=== PATIENT | female | born 1940 | race Caucasian/White ===

== ENCOUNTER 2016-10-30 16:18 | Emergency (ER) | payer MEDICARE, OTHER ==
--- NOTE | 2016-10-30 16:51 | ED ---
General Adult HPI - General Chief complaint: Fall Stated complaint: fall Time Seen by Provider: 10/30/16 16:33 Source: patient, RN notes reviewed Mode of arrival: EMS - History of Present Illness Initial comments: Patient 76-year-old female who presents emergency room today by EMS, the chief complaint fall that occurred just prior to arrival. She does admit that she tripped over a step going from the garage to the kitchen. Patient states she fell down hitting the left knee and onto the right arm. Admit that she hit her head. Denies any loss consciousness. Admits to mild headache. Right-sided back pain and right arm pain in the biceps area. Admits to anterior left knee pain. Patient denies any other complaints or symptoms at times. She states she states still she is comfortable. She has declined any pain medicine at this time. Patient denies any recent fever, chills, shortness of breath, chest pain, abdominal pain, nausea or vomiting, numbness or tingling, dysuria or hematuria, constipation or diarrhea, headaches or visual changes, or any other complaints. - Related Data Home Medications Medication Instructions Recorded Confirmed Bisoprolol-Hctz 10-6.25 mg [Ziac 1 tab PO DAILY 11/26/15 10/30/16 10-6.25] Fenofibrate [Fenofibrate] 160 mg PO DAILY 11/26/15 10/30/16 Gluc/Robbin-MSM#1/C/Jack/Mathew/Bor 1 tab PO DAILY 10/30/16 10/30/16 [Glucosamine-Chondroitin Tablet] Multivits-Min/Iron/FA/Lutein 1 tab PO DAILY 10/30/16 10/30/16 [Centrum Silver Women Tablet] [place]-3 Fatty Acids/Fish Oil [Fish 1 cap PO DAILY 10/30/16 10/30/16 Oil 1,000 mg Softgel] Previous Rx's Medication Instructions Recorded Cyclobenzaprine [Flexeril] 10 mg PO TID #20 tab 10/30/16 Ibuprofen [Motrin] 600 mg PO Q6HR PRN #20 day 10/30/16 Allergies Allergy/AdvReac Type Severity Reaction Status Date / Time prednisone AdvReac Severe Rapid Verified 10/30/16 16:52 Heart Rate codeine AdvReac Hallucinati Verified 10/30/16 16:52 ons Review of Systems ROS Statement: Those systems with pertinent positive or pertinent negative responses have been documented in the HPI. ROS Other: All systems not noted in ROS Statement are negative. 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, murmur, edema bilateral ankles much of the time, OA in back, basal cell skin cancer removed from nose x 2, History of Any Multi-Drug Resistant Organisms: None Reported Past Surgical History: Appendectomy, Section, Cholecystectomy, Hysterectomy, Tonsillectomy Additional Past Surgical History / Comment(s): Bilateral cataract removal with lens implants, D&C's, hysteroscopy, hysterectomy with BSO, basal cell skin cancer removed from nose x 2, colonoscopy x 2, ear growth removed as infant Past Anesthesia/Blood Transfusion Reactions: No Reported Reaction Past Psychological History: No Psychological Hx Reported Additional Psychological History / Comment(s): Pt resides with her spouse of 50 yrs. She is independent. She uses no assistive device. She drives on occasion. Smoking Status: Never smoker Past Alcohol Use History: Rare Past Drug Use History: None Reported - Past Family History Father Family Medical History: Coronary Artery Disease (CAD), Dementia Additional Family Medical History / Comment(s): Father at age 65 yrs. Mother Additional Family Medical History / Comment(s): Mother had some sort of lung problem. She was a nonsmoker. She lived into her 80's. General Exam - General Exam Comments Initial Comments: General: The patient is awake and alert, in no distress, and does not appear acutely ill. Eye: Pupils are equal, round and reactive to light, extra-ocular movements are intact. No nystagmus. There is normal conjunctiva bilaterally. No signs of icterus. Ears, nose, mouth and throat: There are moist mucous membranes and no oral lesions. Neck: The neck is supple, there is no tenderness or JVD. Cardiovascular: There is a regular rate and rhythm. No murmur, rub or gallop is appreciated. Respiratory: Lungs are clear to auscultation, respirations are non-labored, breath sounds are equal. No wheezes, stridor, rales, or rhonchi. Gastrointestinal: Soft, non-distended, non-tender abdomen without masses or organomegaly noted. There is no rebound or guarding present. No CVA tenderness. Bowel sounds are unremarkable. Musculoskeletal: Normal appearance of the cervical, thoracic, lumbar spine. No step-offs first. She appeared no tenderness over the spinous processes. Patient does have some mild tenderness in the right side of the back. No bruising or swelling. Normal appearance of the left knee. Normal appearance of the right humerus. Patient does have mild tenderness recheck of the right humerus. Does have tenderness to the left anterior knee. Strength 5/5. Sensation intact. Pulses equal bilaterally 2+. Neurological: A&O x 3. CN II-XII intact, There are no obvious motor or sensory deficits. Coordination appears grossly intact. Speech is normal. Skin: Skin is warm and dry and no rashes or lesions are noted. Psychiatric: Cooperative, appropriate mood & affect, normal judgment. Course Vital Signs 10/30/16 10/30/16 16:20 17:39 Temperature 97.9 F Pulse Rate 84 77 Respiratory 20 20 Rate Blood Pressure 198/95 160/70 O2 Sat by Pulse 98 97 Oximetry Medical Decision Making - Medical Decision Making Patient's x-rays have been reviewed and are unremarkable no fracture dislocations. Patient's CT of the head and neck also reviewed. Shows spinal changes. No fracture seen in the cervical spine. Extensive pulmonary fibrosis. There is noted multilevel significant posterior spurring and disc herniation of C3-4, C4-5, and to a lesser extent C6-7, with a significant spinal stenosis is more severe at C2-3 and C3-4. Canal is narrowed to 5 mm. results discussed with her physician Dr. Oconnor also discussed with the patient. Patient denies any radicular type pain. Does admit to pain to the proximal humerus. Patient is advised follow-up family doctor over the next 2 days. Will be given a prescription for ibuprofen and Flexeril to go home with. Advised to return if any symptoms increase or worsen. Patient states understanding and is in agreement. Disposition Clinical Impression: Fall, Contusion Disposition: HOME SELF-CARE Condition: Good Instructions: Contusion in Adults (ED) Additional Instructions: Please use medication as discussed. Please follow-up with family doctor in the next 2 days of symptoms have not improved. Please return to emergency room if the symptoms increase or worsen or for any other concerns. Prescriptions: Cyclobenzaprine [Flexeril] 10 mg PO TID #20 tab Ibuprofen [Motrin] 600 mg PO Q6HR PRN #20 day PRN Reason: Pain Time of Disposition: 18:35
--- NOTE | 2016-10-30 17:27 | CT ---
EXAMINATION TYPE: CT brain audrey eduardo DATE OF EXAM: 10/30/2016 5:19 PM COMPARISON: NONE HISTORY: Fall injury today. CT DLP: 1687.1 mGycm Automated exposure control for dose reduction was used. TECHNIQUE: CT scan of the head and cervical spine are performed without contrast. FINDINGS: The ventricles and sulci appear normal for age. There is no mass effect nor midline shift . There is no sign of intracranial hemorrhage. The calvarium is intact. Cervical vertebra are in normal alignment. There is narrowing of C4-5 C6-7 disc spaces with spur form ation. There is multilevel hypertrophic facet arthropathy. Skull base is intact. There is no sign of fracture. There are extensive fibrotic changes at the lung apices. IMPRESSION: Negative CT scan of the brain. Spondylotic changes. No fracture seen in the cervical spine. Extensive pulmonary fibrosis. There is noted multilevel significant posterior spurring and disc herniation at C3-4 C4-5 and to a le sser extent C6-7 with significant spinal stenosis. Stenosis is more severe at C2-3 and C3-4. Canal is narrowed to 5 mm.
--- NOTE | 2016-10-30 18:02 | XR ---
EXAMINATION TYPE: XR knee complete LT DATE OF EXAM: 10/30/2016 5:52 PM COMPARISON: NONE HISTORY: Knee pain TECHNIQUE: 3 views FINDINGS: There is spurring of the medial femoral and tibial condyles. There is mild narrowing of med ial joint space. There is spurring on the patella. There is no sign of joint effusion. IMPRESSION: Hypertrophic osteoarthritis. No fracture.
--- NOTE | 2016-10-30 18:04 | XR ---
EXAMINATION TYPE: XR humerus RT DATE OF EXAM: 10/30/2016 5:53 PM COMPARISON: NONE HISTORY: Pain after a fall TECHNIQUE: 2 views FINDINGS: I see no fracture nor dislocation. Shoulder joint and elbow joint appear intact. IMPRESSION: Negative right humerus exam.
--- NOTE | 2016-10-30 18:06 | XR ---
EXAMINATION TYPE: XR chest 2V DATE OF EXAM: 10/30/2016 5:53 PM COMPARISON: 11/27/2015 HISTORY: Chest pain TECHNIQUE: Frontal and lateral views of the chest are obtained. FINDINGS: There is coarsening of interstitial pulmonary markings. There is no definite heart failure . Costophrenic angles are clear. There is spurring in the thoracic spine. Trachea is midline. There a re no hilar masses. IMPRESSION: Moderate pulmonary fibrotic changes. No acute lung disease. No change compared to old ex am. No pneumothorax.
[2016-10-30] MEDS ORDERED: CYCLOBENZAPRINE 10MG STARTER 3 TAB BTL PO STA (18:25)
[2016-10-30] MEDS ORDERED: IBUPROFEN 600 MG STARTER PACK 4 TAB BTL PO STA (18:25)
[2016-10-30 19:06] VITALS: BP 182/75; PULSE 74; RESP 18; TEMP 97.8
== END 2016-10-30 19:05 | disposition home or self-care (01) ==
LOC: EC 16:18
DX: T14.8 Other injury of unspecified body region (principal); W10.8XXA Fall (on) (from) other stairs and steps, initial encounter; Y92.015 Private garage of single-family (private) house as the place of occurrence of the external cause; M25.562 Pain in left knee; M79.601 Pain in right arm; R51 Headache; Z88.5 Allergy status to narcotic agent; Z88.8 Allergy status to other drugs, medicaments and biological substances; Z79.899 Other long term (current) drug therapy; I10 Essential (primary) hypertension; E78.5 Hyperlipidemia, unspecified; M47.9 Spondylosis, unspecified; J84.10 Pulmonary fibrosis, unspecified; M50.221 Other cervical disc displacement at C4-C5 level; M50.223 Other cervical disc displacement at C6-C7 level; M17.12 Unilateral primary osteoarthritis, left knee
CPT/HCPCS: 70450; 71020; 72125; 99284

== ENCOUNTER → 2017-04-05 | Outpatient (CLI) | payer MEDICARE, OTHER ==
[2017-04-05 11:57] LABS: ALT 35 U/L (9-52); AST 28 U/L (14-36); Alkaline Phosphatase 64 U/L (38-126); Anion Gap 10 mmol/L; Blood Urea Nitrogen 21 mg/dL (7-17); Calcium 9.6 mg/dL (8.4-10.2); Carbon Dioxide 24 mmol/L (22-30); Chloride 108 mmol/L (98-107); Cholesterol 174 mg/dL (<200); Glucose 115 mg/dL (74-99); HDL Cholesterol 38 mg/dL (40-60); Non-African American GFR(MDRD) >60 (>60 ml/min/1.73 sqM); Potassium 4.5 mmol/L (3.5-5.1); Sodium 142 mmol/L (137-145); Total Bilirubin 0.6 mg/dL (0.2-1.3); Total Protein 6.9 g/dL (6.3-8.2); Triglycerides 186 mg/dL (<150)
[2017-04-05 12:01] LABS: Basophils # (A) 0.1 k/uL (0-0.2); Basophils % (A) 1 %; CH 31.9; CHCM 32.5; Eosinophils # (A) 0.2 k/uL (0-0.7); Eosinophils % (A) 2 %; HCT 45.2 % (34.0-46.0); HDW 2.12; HGB 15.1 gm/dL (11.4-16.0); Luc # (Auto) 0.31; Luc % (Auto) 4; Lymphocytes # (A) 3.4 k/uL (1.0-4.8); Lymphocytes % (A) 38 %; MCHC 33.5 g/dL (31.0-37.0); MCV 98.5 fL (80.0-100.0); Mean Platelet Volume 6.9; Monocytes # (A) 0.4 k/uL (0-1.0); Monocytes % (A) 5 %; Neutrophils # (A) 4.4 k/uL (1.3-7.7); Neutrophils % (A) 50 %; RBC 4.58 m/uL (3.80-5.40); WBC 8.9 k/uL (3.8-10.6); WBC (Perox) 9.31
== END ==
LOC: LABWHC1 11:19
PROVIDERS: ATTEND Family Medicine
DX: R42 Dizziness and giddiness (principal)
CPT/HCPCS: 36415; 80053; 80061; 84439; 84443; 85025

== ENCOUNTER → 2017-06-13 | Outpatient (CLI) | payer MEDICARE, OTHER ==
--- NOTE | 2017-06-13 18:57 | XR ---
EXAMINATION TYPE: XR lumbosacral spine min 4V DATE OF EXAM: 06/13/2017 COMPARISON: NONE HISTORY: Back pain TECHNIQUE: 5 views FINDINGS: The vertebra have fairly normal alignment. There is a few millimeter anterior subluxation o f L4 in relation L5. There is mild narrowing of lumbar disc spaces. There is no compression fracture. I see no focal bone destruction. Sacroiliac joints are intact. Posterior elements are intact. IMPRESSION: Mild multilevel spondylosis. No fracture seen.
== END | disposition home or self-care (01) ==
LOC: RADXRMAIN 17:37
PROVIDERS: ATTEND Family Medicine
DX: M47.27 Other spondylosis with radiculopathy, lumbosacral region (principal)
CPT/HCPCS: 72110

== ENCOUNTER → 2017-08-30 | Outpatient (CLI) | payer MEDICARE, OTHER ==
--- NOTE | 2017-08-31 07:10 | XR ---
EXAMINATION TYPE: XR shoulder complete RT DATE OF EXAM: 08/30/2017 COMPARISON: NONE HISTORY: Pain TECHNIQUE: Three views are submitted. FINDINGS: The osseous structures are intact. There is no acute fracture or dislocation. Arthropathy of the AC joint. Chronic interstitial lung changes noted. Diffuse mild osteopenia. IMPRESSION: 1. AC joint arthropathy
--- NOTE | 2017-08-31 07:15 | XR ---
EXAMINATION TYPE: XR knee complete RT DATE OF EXAM: 08/30/2017 COMPARISON: NONE HISTORY: TECHNIQUE: Four views are submitted. FINDINGS: There is narrowing of the joint spaces with no erosive change. Mild hypertrophic changes are seen. Os seous structures intact. IMPRESSION: 1. Moderate osteoarthritis.
== END | disposition home or self-care (01) ==
LOC: RADXRMAIN 16:05
PROVIDERS: ATTEND Family Medicine
DX: M17.11 Unilateral primary osteoarthritis, right knee (principal); M12.811 Other specific arthropathies, not elsewhere classified, right shoulder

== ENCOUNTER → 2017-09-28 | Outpatient (CLI) | payer MEDICARE, OTHER ==
--- NOTE | 2017-09-28 16:16 | MR ---
EXAMINATION TYPE: MR shoulder RT wo con DATE OF EXAM: 09/28/2017 COMPARISON: NONE HISTORY: Right shoulder pain TECHNIQUE: Multiplanar, multisequence imaging of the right shoulder is performed without contrast. FINDINGS: Rotator Cuff: Supraspinatus tendon is torn. Retractor with loss of the acromiohumeral space. The dist al tendon most likely is at the level of the glenoid labrum. There is a small amount of joint effusio n present. Glenoid labrum appears small. Acromioclavicular Joint: Slightly hypertrophic compatible with degenerative change. This could contri bute to impingement syndrome. Glenohumeral Joint: There is loss of the joint space. The humeral head is elevated in relation to the glenoid. Labrum: The labrum appears small and limited given limitation of non-arthrogram study. Biceps Tendon: The long head of biceps is in normal location within bicipital groove. Small amount of fluid is present, consider tendinosis Bone marrow signal: No focal abnormal marrow signal is appreciated. Other: There is some fatty infiltration of the supraspinatus muscle centrally. Milder changes may be present within the infraspinatus muscle. Partial tear of the infraspinatus tendon is suspected. IMPRESSION: 1. Rotator cuff tear with the tear of the supraspinatus tendon with retraction to at least the level of the glenoid. Partial infraspinatus tendon tear is also present. 2. Small joint effusion. 3. Degenerative changes glenohumeral joint space
== END | disposition home or self-care (01) ==
LOC: RADMRIMAIN 11:47
PROVIDERS: ATTEND Family Medicine
DX: S46.011A Strain of muscle(s) and tendon(s) of the rotator cuff of right shoulder, initial encounter (principal)

== ENCOUNTER 2018-08-14 17:38 | Emergency (ER) | payer MEDICARE, OTHER ==
[2018-08-14] MEDS ORDERED: SODIUM CHLORIDE 0.9% 1,000 ML IV STA ×2 (17:56)
[2018-08-14] MEDS ORDERED: ONDANSETRON 4 MG/2 ML VIAL IVP STA (17:56)
[2018-08-14] MEDS ORDERED: MORPHINE SULFATE 4 MG/ML SYRINGE IV STA (17:56)
--- NOTE | 2018-08-14 18:00 | ED ---
Abdominal Pain HPI - General Chief Complaint: Abdominal Pain Stated Complaint: ABDOMINAL PAIN, NAUSEA Time Seen by Provider: 08/14/18 17:44 Source: patient, RN notes reviewed, old records reviewed Mode of arrival: ambulatory Limitations: no limitations - History of Present Illness Initial Comments: Patient is a 77-year-old female who presents emergency department today with chief complaint of right-sided abdominal pain radiating towards her back. She reports polyuria. Patient reports she is newly diabetic but does not take her metformin due to hearing "horror stories whether patient's". Patient states that she has had episodes of dry heaving and complains of diarrhea. She denies any bloody emesis or stools. Patient relates that she just feels very ill and weak. She states that she took 8 hours to gather the strength to come to the emergency department. Patient is here with her . Past medical history includes hypertension, hyperlipidemia and newly diagnosed diabetes. She has had cholecystectomy, appendectomy, total hysterectomy. Patient denies any recent fever, chills, shortness of breath, chest pain, back pain, abdominal pain , nausea vomiting, numbness or tingling, dysuria or hematuria, constipation or diarrhea, headaches or visual changes, or any other current symptoms - Related Data Home Medications Medication Instructions Recorded Confirmed Bisoprolol-Hctz 10-6.25 mg [Ziac 1 tab PO DAILY 11/26/15 10/30/16 10-6.25] Fenofibrate 160 mg PO DAILY 11/26/15 10/30/16 Glucosam/Robbin-Msm1/C/Jack/Bosw 1 tab PO DAILY 10/30/16 10/30/16 [Glucosamine-Chondroitin Tablet] Multivit-Min/Iron/Folic/Lutein 1 tab PO DAILY 10/30/16 10/30/16 [Centrum Silver Women Tablet] [place]-3 Fatty Acids/Fish Oil [Fish 1 cap PO DAILY 10/30/16 10/30/16 Oil 1,000 mg Softgel] Previous Rx's Medication Instructions Recorded Cyclobenzaprine [Flexeril] 10 mg PO TID #20 tab 10/30/16 Ibuprofen [Motrin] 600 mg PO Q6HR PRN #20 day 10/30/16 Dicyclomine [Bentyl] 10 mg PO TID #10 capsule 08/14/18 Ondansetron Odt [Zofran Odt] 4 mg PO Q8HR PRN #12 tab 08/14/18 Allergies Allergy/AdvReac Type Severity Reaction Status Date / Time prednisone AdvReac Severe Rapid Verified 08/14/18 17:42 Heart Rate codeine AdvReac Hallucinati Verified 08/14/18 17:42 ons Review of Systems ROS Statement: Those systems with pertinent positive or pertinent negative responses have been documented in the HPI. ROS Other: All systems not noted in ROS Statement are negative. 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, murmur, edema bilateral ankles much of the time, OA in back, basal cell skin cancer removed from nose x 2, History of Any Multi-Drug Resistant Organisms: None Reported Past Surgical History: Appendectomy, Section, Cholecystectomy, Hysterectomy, Tonsillectomy Additional Past Surgical History / Comment(s): Bilateral cataract removal with lens implants, D&C's, hysteroscopy, hysterectomy with BSO, basal cell skin cancer removed from nose x 2, colonoscopy x 2, ear growth removed as infant Past Anesthesia/Blood Transfusion Reactions: No Reported Reaction Past Psychological History: No Psychological Hx Reported Smoking Status: Never smoker Past Alcohol Use History: Rare Past Drug Use History: None Reported - Past Family History Father Family Medical History: Coronary Artery Disease (CAD), Dementia Additional Family Medical History / Comment(s): Father at age 65 yrs. Mother Additional Family Medical History / Comment(s): Mother had some sort of lung problem. She was a nonsmoker. She lived into her 80's. General Exam - General Exam Comments Initial Comments: 77-year-old female. Alert and oriented. No acute distress. Limitations: no limitations General appearance: alert, in no apparent distress Head exam: Present: atraumatic, normocephalic, normal inspection Eye exam: Present: normal appearance ENT exam: Present: normal exam, mucous membranes moist Neck exam: Present: normal inspection. Absent: tenderness, meningismus, lymphadenopathy Respiratory exam: Present: normal lung sounds bilaterally. Absent: respiratory distress, wheezes, rales, rhonchi, stridor Cardiovascular Exam: Present: regular rate, normal rhythm, normal heart sounds. Absent: systolic murmur, diastolic murmur, rubs, gallop, clicks GI/Abdominal exam: Present: soft, tenderness (minimal RLQ tenderness) Extremities exam: Present: normal inspection, full ROM, normal capillary refill. Absent: tenderness, pedal edema, joint swelling, calf tenderness Back exam: Present: normal inspection Neurological exam: Present: alert, oriented X3, CN II-XII intact Psychiatric exam: Present: normal affect, normal mood Skin exam: Present: warm, dry, intact, normal color. Absent: rash Course Vital Signs 08/14/18 17:41 Temperature 98.6 F Pulse Rate 72 Respiratory 20 Rate Blood Pressure 187/72 O2 Sat by Pulse 98 Oximetry Medical Decision Making - Medical Decision Making Patient is a 77-year-old female presents emergency room today with chief complaint of nausea, vomiting episodes of diarrhea for the past 4 days. She reports she's been feeling generally ill. Patient was given IV fluids labwork obtained. Patient's labwork was reviewed to the relatively unremarkable. Normal white blood cell count. Liver and kidney function were normal. Patient did have a CT of her abdomen and pelvis which did show some slight inflammation around the pancreas and to correlate with pancreatic enzymes. These were reviewed and normal as well. Urinalysis is negative for infection. At this time patient's feeling much better. I discussed the possibility of viral gastroenteritis. Discussed that she needs to take nausea medication I will prescribe for Bentyl for abdominal spasming and cramping. Discussed she should follow-up with her PCP in the next 1-2 days. Patient agrees to treatment plan will comply. Return parameters were discussed. - Lab Data Result diagrams: 08/14/18 18:16 08/14/18 18:16 Lab Results 08/14/18 08/14/18 08/14/18 Range/Units 18:16 18:16 18:16 WBC 9.9 (3.8-10.6) k/uL RBC 4.74 (3.80-5.40) m/uL Hgb 15.2 (11.4-16.0) gm/dL Hct 47.8 H (34.0-46.0) % MCV 101.0 H (80.0-100.0) fL MCH 32.1 (25.0-35.0) pg MCHC 31.8 (31.0-37.0) g/dL RDW 12.8 (11.5-15.5) % Plt Count 316 (150-450) k/uL Neutrophils % 62 % Lymphocytes % 29 % Monocytes % 5 % Eosinophils % 2 % Basophils % 1 % Neutrophils # 6.1 (1.3-7.7) k/uL Lymphocytes # 2.9 (1.0-4.8) k/uL Monocytes # 0.5 (0-1.0) k/uL Eosinophils # 0.2 (0-0.7) k/uL Basophils # 0.1 (0-0.2) k/uL PT (9.0-12.0) sec INR (<1.2) APTT (22.0-30.0) sec Sodium 139 (137-145) mmol/L Potassium 4.4 (3.5-5.1) mmol/L Chloride 110 H (98-107) mmol/L Carbon Dioxide 21 L (22-30) mmol/L Anion Gap 8 mmol/L BUN 14 (7-17) mg/dL Creatinine 0.57 (0.52-1.04) mg/dL Est GFR (CKD-EPI)AfAm >90 (>60 ml/min/1.73 sqM) Est GFR (CKD-EPI)NonAf >90 (>60 ml/min/1.73 sqM) Glucose 122 H (74-99) mg/dL Plasma Lactic Acid Juancho 1.2 (0.7-2.0) mmol/L Calcium 9.7 (8.4-10.2) mg/dL Total Bilirubin 0.8 (0.2-1.3) mg/dL AST 39 H (14-36) U/L ALT 23 (9-52) U/L Alkaline Phosphatase 44 (38-126) U/L Total Protein 7.3 (6.3-8.2) g/dL Albumin 3.9 (3.5-5.0) g/dL Amylase 36 (30-110) U/L Lipase 31 (23-300) U/L Urine Color Urine Appearance (Clear) Urine pH (5.0-8.0) Ur Specific [place] (1.001-1.035) Urine Protein (Negative) Urine Glucose (UA) (Negative) Urine Ketones (Negative) Urine Blood (Negative) Urine Nitrite (Negative) Urine Bilirubin (Negative) Urine Urobilinogen (<2.0) mg/dL Ur Leukocyte Esterase (Negative) Acetone, Qual Negative (Negative) 08/14/18 08/14/18 Range/Units 18:16 19:47 WBC (3.8-10.6) k/uL RBC (3.80-5.40) m/uL Hgb (11.4-16.0) gm/dL Hct (34.0-46.0) % MCV (80.0-100.0) fL MCH (25.0-35.0) pg MCHC (31.0-37.0) g/dL RDW (11.5-15.5) % Plt Count (150-450) k/uL Neutrophils % % Lymphocytes % % Monocytes % % Eosinophils % % Basophils % % Neutrophils # (1.3-7.7) k/uL Lymphocytes # (1.0-4.8) k/uL Monocytes # (0-1.0) k/uL Eosinophils # (0-0.7) k/uL Basophils # (0-0.2) k/uL PT 10.2 (9.0-12.0) sec INR 1.0 (<1.2) APTT 22.4 (22.0-30.0) sec Sodium (137-145) mmol/L Potassium (3.5-5.1) mmol/L Chloride (98-107) mmol/L Carbon Dioxide (22-30) mmol/L Anion Gap mmol/L BUN (7-17) mg/dL Creatinine (0.52-1.04) mg/dL Est GFR (CKD-EPI)AfAm (>60 ml/min/1.73 sqM) Est GFR (CKD-EPI)NonAf (>60 ml/min/1.73 sqM) Glucose (74-99) mg/dL Plasma Lactic Acid Juancho (0.7-2.0) mmol/L Calcium (8.4-10.2) mg/dL Total Bilirubin (0.2-1.3) mg/dL AST (14-36) U/L ALT (9-52) U/L Alkaline Phosphatase (38-126) U/L Total Protein (6.3-8.2) g/dL Albumin (3.5-5.0) g/dL Amylase (30-110) U/L Lipase (23-300) U/L Urine Color Yellow Urine Appearance Clear (Clear) Urine pH 6.5 (5.0-8.0) Ur Specific [place] 1.050 H (1.001-1.035) Urine Protein Negative (Negative) Urine Glucose (UA) Negative (Negative) Urine Ketones Negative (Negative) Urine Blood Negative (Negative) Urine Nitrite Negative (Negative) Urine Bilirubin Negative (Negative) Urine Urobilinogen 2.0 (<2.0) mg/dL Ur Leukocyte Esterase Negative (Negative) Acetone, Qual (Negative) - Radiology Data Radiology results: report reviewed CT shows subsegmental atelectasis in the lung bases. There is possible edema the region of the pancreatic head related to mild focal pancreatitis. No discrete masses noted. Mild sigmoid diverticulosis without diverticulitis. Disposition Clinical Impression: Gastroenteritis Disposition: HOME SELF-CARE Condition: Good Instructions: Gastroenteritis (ED) Additional Instructions: Patient advised to rest, small sips of fluid for the next 24 hours. [place] diet. Follow-up with primary care provider tomorrow. Return to the emergency department if any alarming signs or symptoms occur. Prescriptions: Dicyclomine [Bentyl] 10 mg PO TID #10 capsule Ondansetron Odt [Zofran Odt] 4 mg PO Q8HR PRN #12 tab PRN Reason: Nausea Is patient prescribed a controlled substance at d/c from ED?: No Referrals: Manuel Bowles MD [Primary Care Provider] - 1-2 days Time of Disposition: 20:24
[2018-08-14 18:30] LABS: Basophils # (A) 0.1 k/uL (0-0.2); Basophils % (A) 1 %; Eosinophils # (A) 0.2 k/uL (0-0.7); Eosinophils % (A) 2 %; HCT 47.8 % (34.0-46.0); HGB 15.2 gm/dL (11.4-16.0); Lymphocytes # (A) 2.9 k/uL (1.0-4.8); Lymphocytes % (A) 29 %; MCH 32.1 pg (25.0-35.0); MCHC 31.8 g/dL (31.0-37.0); Mean Platelet Volume 7.2; Monocytes # (A) 0.5 k/uL (0-1.0); Monocytes % (A) 5 %; Neutrophils # (A) 6.1 k/uL (1.3-7.7); Neutrophils % (A) 62 %; Platelet Count 316 k/uL (150-450); RBC 4.74 m/uL (3.80-5.40); RDW 12.8 % (11.5-15.5); WBC 9.9 k/uL (3.8-10.6)
[2018-08-14 18:39] LABS: Partial Thromboplastin Time 22.4 sec (22.0-30.0); Prothrombin Time 10.2 sec (9.0-12.0)
[2018-08-14 18:41] LABS: ALT 23 U/L (9-52); AST 39 U/L (14-36); Albumin 3.9 g/dL (3.5-5.0); Alkaline Phosphatase 44 U/L (38-126); Amylase 36 U/L (30-110); Anion Gap 8 mmol/L; Blood Urea Nitrogen 14 mg/dL (7-17); Calcium 9.7 mg/dL (8.4-10.2); Carbon Dioxide 21 mmol/L (22-30); Chloride 110 mmol/L (98-107); Glucose 122 mg/dL (74-99); Lipase 31 U/L (23-300); Potassium 4.4 mmol/L (3.5-5.1); Sodium 139 mmol/L (137-145); Total Bilirubin 0.8 mg/dL (0.2-1.3); Total Protein 7.3 g/dL (6.3-8.2)
--- NOTE | 2018-08-14 19:43 | CT ---
EXAMINATION TYPE: CT abdomen pelvis w con DATE OF EXAM: 08/14/2018 COMPARISON: None HISTORY: Nausea and right lower quadrant pain. CT DLP: 968.7 mGycm Automated exposure control for dose reduction was used. TECHNIQUE: Helical acquisition of images was performed from the lung bases through the pelvis. CONTRAST: Performed without Oral Contrast and with IV Contrast, patient injected with 100 mL of Isovue 300. FINDINGS: There is mild subsegmental atelectasis at the lung bases. There is no pleural effusion. There is no p ericardial effusion. Heart is enlarged. The stomach appears fairly normal. There are clips from ananda cystectomy. Spleen appears normal. There is no pancreatic mass. Liver shows no focal defect. There is slight prominence of the pancreatic head without a discrete mass. This could relate to minimal infla mmatory process. There is no adrenal mass. Kidneys have normal size. There is bilateral renal cortical cysts. The larg est is on the left side and measures 3 cm. There is no retroperitoneal adenopathy. There is no hydron ephrosis. There are a few sigmoid diverticula. There is no sign of diverticulitis. There are spondylo tic changes in the lumbar spine. I see no bony destructive process. Bladder distends smoothly. There is no inguinal hernia. There is no mesenteric edema or adenopathy. IMPRESSION: SUBSEGMENTAL ATELECTASIS AT THE LUNG BASES. There is possible edema at the region of pancreatic head that could relate to mild focal pancreatitis . No discrete mass seen. Minimal sigmoid diverticulosis without diverticulitis.
[2018-08-14 20:08] LABS: Appearance,Urine Clear (Clear); Bilirubin,Urine Negative (Negative); Blood,Urine Negative (Negative); Color,Urine Yellow; Glucose,Urine (UA) Negative (Negative); Ketones,Urine Negative (Negative); Leukocyte Esterase,Urine Negative (Negative); Nitrite,Urine Negative (Negative); PH, Urine 6.5 (5.0-8.0); Protein,Urine Negative (Negative)
[2018-08-14 20:26] VITALS: BP 167/78; PULSE 64; RESP 18; TEMP 98.4
== END 2018-08-14 20:41 | disposition home or self-care (01) ==
LOC: EC 17:38
DX: K52.9 Noninfective gastroenteritis and colitis, unspecified (principal); I11.0 Hypertensive heart disease with heart failure; I50.9 Heart failure, unspecified; E78.5 Hyperlipidemia, unspecified; M19.90 Unspecified osteoarthritis, unspecified site; Z85.828 Personal history of other malignant neoplasm of skin; Z90.49 Acquired absence of other specified parts of digestive tract; Z90.710 Acquired absence of both cervix and uterus; Z98.890 Other specified postprocedural states; Z79.899 Other long term (current) drug therapy; Z88.5 Allergy status to narcotic agent; Z88.8 Allergy status to other drugs, medicaments and biological substances
CPT/HCPCS: 36415; 74177; 80053; 81003; 82009; 82150; 83605; 83690; 85025; 85610; 85730; 87040; 96361; 96374; 96375; 99284

== ENCOUNTER → 2018-08-16 | Outpatient (CLI) | payer MEDICARE, OTHER ==
[2018-08-16 11:50] LABS: Basophils # (A) 0.1 k/uL (0-0.2); Basophils % (A) 1 %; Eosinophils # (A) 0.2 k/uL (0-0.7); Eosinophils % (A) 2 %; HCT 48.2 % (34.0-46.0); HGB 15.2 gm/dL (11.4-16.0); Lymphocytes # (A) 3.4 k/uL (1.0-4.8); Lymphocytes % (A) 33 %; MCH 31.7 pg (25.0-35.0); MCHC 31.6 g/dL (31.0-37.0); MCV 100.4 fL (80.0-100.0); Mean Platelet Volume 7.7; Monocytes # (A) 0.5 k/uL (0-1.0); Monocytes % (A) 5 %; Neutrophils # (A) 5.8 k/uL (1.3-7.7); Neutrophils % (A) 56 %; Platelet Count 326 k/uL (150-450); RDW 12.8 % (11.5-15.5); WBC 10.3 k/uL (3.8-10.6)
[2018-08-16 11:56] LABS: ALT 27 U/L (9-52); AST 49 U/L (14-36); Albumin 4.1 g/dL (3.5-5.0); Alkaline Phosphatase 45 U/L (38-126); Amylase 43 U/L (30-110); Bilirubin, Delta 0.6 mg/dL (0.0-0.2); Bilirubin,Unconjugated 0.4 mg/dL (0.0-1.1); Blood Urea Nitrogen 19 mg/dL (7-17); Lipase 33 U/L (23-300); Total Protein 7.7 g/dL (6.3-8.2)
--- NOTE | 2018-08-16 13:43 | CT ---
EXAMINATION TYPE: CT abdomen pelvis w con DATE OF EXAM: 08/16/2018 HISTORY: Nausea and Abdominal pain CT DLP: 1543mGycm Automated Exposure Control for Dose Reduction was Utilized. CONTRAST: CT scan of the abdomen and pelvis is performed with IV Contrast, patient injected with 100 ml mL of I sovue 300. COMPARISON: 08/14/2018. FINDINGS: LUNG BASES: Early fibrotic changes are seen of the lung bases with pleural parenchymal scarring and s ubpleural reticulation.. LIVER/GB: Hepatic parenchyma is diffusely hypoattenuated in comparison to that of the spleen, most co mmonly seen in hepatic steatosis. This finding limits evaluation for hepatic masses. No gross evidenc e of hepatic mass is seen. No intrahepatic biliary ductal dilatation. Gallbladder surgically absent. PANCREAS: Again there is expansion of the pancreatic head without focal fat stranding. Adjacent duod enal diverticulum is noted. SPLEEN: No significant abnormality is seen. ADRENALS: No significant abnormality is seen. KIDNEYS: There are again bilateral renal cysts, the largest seen on the left measuring up to 2.8 cm. No hydronephrosis bilaterally. Left extrarenal pelvis is noted. BOWEL: Rectum is collapsed limiting evaluation for bowel wall thickening. No proximal dilated large o r small bowel. Again there is minimal sigmoid diverticulosis without pericolonic fat stranding. UTERUS/ADNEXA: Uterus appears surgically absent or significantly atrophic. LYMPH NODES: No greater than 1cm abdominal or pelvic lymph nodes are appreciated. OSSEOUS STRUCTURES: No multilevel degenerative change of the spine is seen. OTHER: Small right inguinal hernia is seen containing small amount of probable complex fluid. Smaller left inguinal hernia is noted. Surgical clips are noted along the right anterior abdominal wall. IMPRESSION: 1. Bilateral small inguinal hernias, right greater than left containing indeterminant hypodensity, po ssibly thickened fascial carrera. 2. Similar expansion of the pancreatic head that should be correlated with serum amylase and lipase t o evaluate for groove pancreatitis.
== END | disposition home or self-care (01) ==
LOC: RADCTMAIN 11:03
PROVIDERS: ATTEND Family Medicine
DX: K40.20 Bilateral inguinal hernia, without obstruction or gangrene, not specified as recurrent (principal); R11.0 Nausea; Z88.5 Allergy status to narcotic agent
CPT/HCPCS: 80076; 82150; 82565; 83690; 84520; 85025; 74177; 36415; Q9967

== ENCOUNTER 2018-08-17 04:40 | Observation (INO) | payer MEDICARE, OTHER ==
--- NOTE | 2018-08-17 06:56 | ED ---
Abdominal Pain HPI - General Chief Complaint: Abdominal Pain Stated Complaint: Abdominal/Back Pain Time Seen by Provider: 08/17/18 05:02 Source: patient Mode of arrival: wheelchair Limitations: no limitations - History of Present Illness Initial Comments: This patient is 77-year-old woman who has been having days of abdominal pain. She indicates the right lower quadrant. She states that it is aching, tonight it became severe but has improved a little bit since it was at its worst. She is currently declining analgesic medicine area the patient states that she had seen her physician, and had a computed tomography scan done yesterday that reportedly showed a hernia. The patient also has had some nausea but no khadar vomiting. MD Complaint: abdominal pain -: days(s) Location: RLQ Radiation: none Migration to: no migration Severity: severe Quality: aching Consistency: constant Improves With: nothing Worsens With: nothing - Related Data Home Medications Medication Instructions Recorded Confirmed Bisoprolol-Hctz 10-6.25 mg [Ziac 1 tab PO DAILY 11/26/15 08/17/18 10-6.25] Fenofibrate 160 mg PO DAILY 11/26/15 08/17/18 Glucosam/Robbin-Msm1/C/Jack/Bosw 1 tab PO DAILY 10/30/16 08/17/18 [Glucosamine-Chondroitin Tablet] Multivit-Min/Iron/Folic/Lutein 1 tab PO DAILY 10/30/16 08/17/18 [Centrum Silver Women Tablet] [place]-3 Fatty Acids/Fish Oil [Fish 1 cap PO DAILY 10/30/16 08/17/18 Oil 1,000 mg Softgel] Previous Rx's Medication Instructions Recorded Cyclobenzaprine [Flexeril] 10 mg PO TID #20 tab 10/30/16 Ibuprofen [Motrin] 600 mg PO Q6HR PRN #20 day 10/30/16 Dicyclomine [Bentyl] 10 mg PO TID #10 capsule 08/14/18 Ondansetron Odt [Zofran Odt] 4 mg PO Q8HR PRN #12 tab 08/14/18 Allergies Allergy/AdvReac Type Severity Reaction Status Date / Time prednisone AdvReac Severe Rapid Verified 08/14/18 17:42 Heart Rate codeine AdvReac Hallucinati Verified 08/14/18 17:42 ons Review of Systems ROS Statement: Those systems with pertinent positive or pertinent negative responses have been documented in the HPI. ROS Other: All systems not noted in ROS Statement are negative. 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, murmur, edema bilateral ankles much of the time, OA in back, basal cell skin cancer removed from nose x 2, History of Any Multi-Drug Resistant Organisms: None Reported Past Surgical History: Appendectomy, Section, Cholecystectomy, Hysterectomy, Tonsillectomy Additional Past Surgical History / Comment(s): Bilateral cataract removal with lens implants, D&C's, hysteroscopy, hysterectomy with BSO, basal cell skin cancer removed from nose x 2, colonoscopy x 2, ear growth removed as infant Past Anesthesia/Blood Transfusion Reactions: No Reported Reaction Past Psychological History: No Psychological Hx Reported Smoking Status: Never smoker Past Alcohol Use History: Rare Past Drug Use History: None Reported - Past Family History Father Family Medical History: Coronary Artery Disease (CAD), Dementia Additional Family Medical History / Comment(s): Father at age 65 yrs. Mother Additional Family Medical History / Comment(s): Mother had some sort of lung problem. She was a nonsmoker. She lived into her 80's. General Exam Limitations: no limitations Course Vital Signs 08/17/18 08/17/18 04:53 06:59 Temperature 98.6 F Pulse Rate 73 63 Respiratory 20 16 Rate Blood Pressure 158/68 162/70 O2 Sat by Pulse 96 95 Oximetry Medical Decision Making - Medical Decision Making Case discussed with Dr. Tobin, who will admit the patient and given the hernia that's there will have surgery see the patient. Dr. Dubois is on-call and I did discuss the case with him and he'll see the patient. Disposition Clinical Impression: Abdominal pain Disposition: ADMITTED IP TO THIS HOSP Condition: Fair Instructions: Abdominal Pain (ED) Is patient prescribed a controlled substance at d/c from ED?: No Referrals: Rosalio Tobin Jr, DO [Primary Care Provider] - 1-2 days
[2018-08-17] MEDS ORDERED: SODIUM CHLORIDE 0.9% 1,000 ML IV ONE (07:07)
[2018-08-17 08:23] LABS: Basophils # (A) 0.1 k/uL (0-0.2); Basophils % (A) 1 %; Eosinophils # (A) 0.1 k/uL (0-0.7); Eosinophils % (A) 1 %; HCT 45.1 % (34.0-46.0); Lymphocytes # (A) 2.9 k/uL (1.0-4.8); Lymphocytes % (A) 27 %; MCH 32.6 pg (25.0-35.0); MCHC 33.2 g/dL (31.0-37.0); MCV 98.2 fL (80.0-100.0); Mean Platelet Volume 7.8; Monocytes # (A) 0.5 k/uL (0-1.0); Monocytes % (A) 5 %; Neutrophils # (A) 6.8 k/uL (1.3-7.7); Neutrophils % (A) 65 %; Platelet Count 297 k/uL (150-450); RDW 12.8 % (11.5-15.5); WBC 10.5 k/uL (3.8-10.6)
[2018-08-17 08:39] LABS: ALT 35 U/L (9-52); AST 37 U/L (14-36); Albumin 3.9 g/dL (3.5-5.0); Alkaline Phosphatase 47 U/L (38-126); Amylase 36 U/L (30-110); Anion Gap 10 mmol/L; Blood Urea Nitrogen 17 mg/dL (7-17); Calcium 9.8 mg/dL (8.4-10.2); Carbon Dioxide 25 mmol/L (22-30); Chloride 106 mmol/L (98-107); Glucose 122 mg/dL (74-99); Lipase 25 U/L (23-300); Potassium 4.4 mmol/L (3.5-5.1); Sodium 141 mmol/L (137-145); Total Bilirubin 0.9 mg/dL (0.2-1.3); Total Protein 7.1 g/dL (6.3-8.2)
[2018-08-17 08:42] VITALS: BP 143/93; PULSE 66; RESP 12; TEMP 98.6
[2018-08-17] MEDS: MORPHINE SULFATE 4 MG/ML SYRINGE IV PRN ×2 (09:16→13:16)
[2018-08-17] MEDS ORDERED: ONDANSETRON 4 MG/2 ML VIAL IVP PRN (10:10)
[2018-08-17] MEDS ORDERED: BISOPROLOL-HCTZ 10-6.25 MG 1 EACH TAB PO SCH (10:15)
[2018-08-17 10:48] LABS: Appearance,Urine Turbid (Clear); Bilirubin,Urine Negative (Negative); Blood,Urine Negative (Negative); Color,Urine Yellow; Glucose,Urine (UA) Negative (Negative); Ketones,Urine Trace (Negative); Leukocyte Esterase,Urine Negative (Negative); Nitrite,Urine Negative (Negative); Protein,Urine Trace (Negative); Specific Gravity,Urine 1.032 (1.001-1.035); Urobilinogen,Urine <2.0 mg/dL (<2.0)
[2018-08-17 11:44] VITALS: BMI 69.7
--- NOTE | 2018-08-17 11:46 | P.HPIM ---
History of Present Illness H&P Date: 08/17/18 Chief Complaint: abdominal pain Denice is a 77-year-old white female well-known to me. She's not particularly compliant, however she's been having abdominal pain in the right lower quadrant lately. She presented the office several times. She underwent 2 CT scans, most recently showing a bilateral inguinal hernias, small, right greater than left. Her contacted me late last night/early this morning about her intractable pain. I directed emergency room. She was admitted for further pain treatment and surgical consultation. She denies any chest pains, pressures, shortness of breath, diarrhea or constipation. She does have some nausea, but no significant vomiting. She's not been eating much due to the pain. 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, murmur, edema bilateral ankles much of the time, OA in back, basal cell skin cancer removed from nose x 2, History of Any Multi-Drug Resistant Organisms: None Reported Past Surgical History: Appendectomy, Section, Cholecystectomy, Hysterectomy, Tonsillectomy Additional Past Surgical History / Comment(s): Bilateral cataract removal with lens implants, D&C's, hysteroscopy, hysterectomy with BSO, basal cell skin cancer removed from nose x 2, colonoscopy x 2, ear growth removed as infant Past Anesthesia/Blood Transfusion Reactions: No Reported Reaction Past Psychological History: No Psychological Hx Reported Smoking Status: Never smoker Past Alcohol Use History: Rare Past Drug Use History: None Reported - Past Family History Father Family Medical History: Coronary Artery Disease (CAD), Dementia Additional Family Medical History / Comment(s): Father at age 65 yrs. Mother Additional Family Medical History / Comment(s): Mother had some sort of lung problem. She was a nonsmoker. She lived into her 80's. Medications and Allergies Home Medications Medication Instructions Recorded Confirmed Type Bisoprolol-Hctz 10-6.25 mg [Ziac 1 tab PO DAILY 11/26/15 08/17/18 History 10-6.25 MG] Fenofibrate 160 mg PO DAILY 11/26/15 08/17/18 History Cyclobenzaprine [Flexeril] 10 mg PO TID #20 tab 10/30/16 08/17/18 Rx Glucosam/Robbin-Msm1/C/Jack/Bosw 1 tab PO DAILY 10/30/16 08/17/18 History [Glucosamine-Chondroitin Tablet] Multivit-Min/Iron/Folic/Lutein 1 tab PO DAILY 10/30/16 08/17/18 History [Centrum Silver Women Tablet] [place]-3 Fatty Acids/Fish Oil [Fish 1 cap PO DAILY 10/30/16 08/17/18 History Oil 1,000 mg Softgel] Dicyclomine [Bentyl] 10 mg PO TID #10 capsule 08/14/18 08/17/18 Rx Ondansetron Odt [Zofran ODT] 4 mg PO Q8HR PRN #12 tab 08/14/18 08/17/18 Rx HYDROcodone/APAP 5-325MG [[place] 1 tab PO Q6HR PRN 3 Days #12 tab 08/17/18 Rx 5-325] Allergies Allergy/AdvReac Type Severity Reaction Status Date / Time prednisone AdvReac Severe Rapid Verified 08/14/18 17:42 Heart Rate codeine AdvReac Hallucinati Verified 08/14/18 17:42 ons Physical Exam Vitals: Vital Signs Temp Pulse Pulse Resp BP BP Pulse Ox 08/17/18 10:26 66 12 08/17/18 08:41 98.6 F 66 12 143/93 99 08/17/18 08:01 98.1 F 62 18 173/82 95 08/17/18 06:59 63 16 162/70 95 08/17/18 04:53 98.6 F 73 20 158/68 96 Intake and Output 08/16/18 08/17/18 08/17/18 22:59 06:59 14:59 Other: Weight 86.183 kg GENERAL: Fatigued, well-nourished and in mild acute distress. HEAD: Atraumatic, normocephalic. EYES: Pupils equal round and reactive to light, extraocular movements intact, sclera anicteric, conjunctiva are normal. ENT:nares patent, oropharynx clear without exudates. Moist mucous membranes. NECK: Normal range of motion, supple without lymphadenopathy or JVD, no thyromegaly LUNGS: Breath sounds clear to auscultation bilaterally and equal. No wheezes rales or rhonchi. HEART: Regular rate and rhythm without murmurs, rubs or gallops.S1S2 Normal ABDOMEN: Soft, , normoactive bowel sounds. No guarding, no rebound. No masses appreciated. Right lower quadrant pain palpated. EXTREMITIES: Normal range of motion, no pitting or edema. No clubbing or cyanosis. NEUROLOGICAL: Cranial nerves II through XII grossly intact. Normal speech, normal gait. PSYCH: Normal mood, normal affect. SKIN: Warm, Dry, normal turgor, no rashes or lesions noted. Results CBC & Chem 7: 08/17/18 07:55 08/17/18 07:55 Labs: Abnormal Lab Results - Last 24 Hours (Table) 08/17/18 08/17/18 Range/Units 07:55 09:00 Glucose 122 H (74-99) mg/dL AST 37 H (14-36) U/L Urine Appearance Turbid H (Clear) Urine Protein Trace H (Negative) Urine Ketones Trace H (Negative) CT scan - abdomen: report reviewed Thrombosis Risk Factor Assmnt - DVT/VTE Prophylaxis DVT/VTE Prophylaxis: Low risk, early ambulation encouraged Assessment and Plan (1) Inguinal hernia Current Visit: Yes Status: Acute Code(s): K40.90 - UNIL INGUINAL HERNIA, W/ O OBST OR GANGR, NOT SPCF RECUR SNOMED Code(s): 998419009 (2) Abdominal pain Current Visit: Yes Status: Acute Code(s): R10.9 - UNSPECIFIED ABDOMINAL PAIN SNOMED Code(s): 58254626 Plan: She'll be admitted for pain control, nausea control, and surgical consultation. We'll await her laboratory studies and further evaluations.
--- NOTE | 2018-08-17 11:49 | P.DS ---
Providers Date of admission: 08/17/18 07:07 Expected date of discharge: 08/17/18 Attending physician: Rosalio Tobin Consults: 08/17/18 07:07 Consult Physician Routine Consulting Provider: Dino Dubois Consult Reason/Comments: Abdominal pain Do you want consulting provider notified?: Already Contacted Primary care physician: Rosalio Tobin - Discharge Diagnosis(es) (1) Inguinal hernia Current Visit: Yes Status: Acute (2) Abdominal pain Current Visit: Yes Status: Acute Hospital Course: Denice is a 77-year-old white female well-known to me. She's not particularly compliant, however she's been having abdominal pain in the right lower quadrant lately. She presented the office several times. She underwent 2 CT scans, most recently showing a bilateral inguinal hernias, small, right greater than left. Her contacted me late last night/early this morning about her intractable pain. I directed emergency room. She was admitted for further pain treatment and surgical consultation. She denies any chest pains, pressures, shortness of breath, diarrhea or constipation. She does have some nausea, but no significant vomiting. She's not been eating much due to the pain. After admission, Denice's pain was controlled with morphine. Dr. Dubois had seen her and will proceed with outpatient inguinal hernia surgery. She was given some Zofran for nausea, which helped. She feels well enough to be discharged home at this time. Surgery is planned in 2-3 days. Patient Condition at Discharge: Fair Plan - Discharge Summary New Discharge Prescriptions: New HYDROcodone/APAP 5-325MG [[place] 5-325] 1 tab PO Q6HR PRN 3 Days #12 tab PRN Reason: Pain Continue Bisoprolol-Hctz 10-6.25 mg [Ziac 10-6.25 MG] 1 tab PO DAILY Fenofibrate 160 mg PO DAILY Glucosam/Robbin-Msm1/C/Jack/Bosw [Glucosamine-Chondroitin Tablet] 1 tab PO DAILY Multivit-Min/Iron/Folic/Lutein [Centrum Silver Women Tablet] 1 tab PO DAILY [place]-3 Fatty Acids/Fish Oil [Fish Oil 1,000 mg Softgel] 1 cap PO DAILY Cyclobenzaprine [Flexeril] 10 mg PO TID #20 tab Ondansetron Odt [Zofran ODT] 4 mg PO Q8HR PRN #12 tab PRN Reason: Nausea Dicyclomine [Bentyl] 10 mg PO TID #10 capsule Discontinued Ibuprofen [Motrin] 600 mg PO Q6HR PRN #20 day PRN Reason: Pain Discharge Medication List Bisoprolol-Hctz 10-6.25 mg [Ziac 10-6.25 MG] 1 tab PO DAILY 11/26/15 [History] Fenofibrate 160 mg PO DAILY 11/26/15 [History] Cyclobenzaprine [Flexeril] 10 mg PO TID #20 tab 10/30/16 [Rx] Glucosam/Robbin-Msm1/C/Jack/Bosw [Glucosamine-Chondroitin Tablet] 1 tab PO DAILY 10/30/16 [History] Multivit-Min/Iron/Folic/Lutein [Centrum Silver Women Tablet] 1 tab PO DAILY [History] [place]-3 Fatty Acids/Fish Oil [Fish Oil 1,000 mg Softgel] 1 cap PO DAILY [History] Dicyclomine [Bentyl] 10 mg PO TID #10 capsule 08/14/18 [Rx] Ondansetron Odt [Zofran ODT] 4 mg PO Q8HR PRN #12 tab 08/14/18 [Rx] HYDROcodone/APAP 5-325MG [[place] 5-325] 1 tab PO Q6HR PRN 3 Days #12 tab [Rx] Follow up Appointment(s)/Referral(s): Dino Dubois DO [Doctor of Osteopathic Medicine] - 1 Week Rosalio Tobin Jr, DO [Primary Care Provider] - As Needed Manuel Bowles MD [STAFF PHYSICIAN] - 1-2 Days Patient Instructions/Handouts: Abdominal Pain (ED) Activity/Diet/Wound Care/Special Instructions: No heavy lifting No jogging Stay on soft foods Discharge Disposition: HOME SELF-CARE
--- NOTE | 2018-08-17 12:02 | P.GSCN ---
History of Present Illness Consult date: 08/17/18 History of present illness: 77-year-old female presented to the emergency department with complaints of right lower quadrant abdominal pain. She states that the pain started approximately 1 week ago and has been increasing in severity. She was seen in the emergency department previously along with her primary care physician's office. On workup, imaging was significant for a right and left inguinal hernia with the right side larger than the left. The patient denies ever having this type of pain previously. She states that a few weeks prior to all of this happening, she did have an episode of constipation and was bearing down at that time. She denies feeling any bulges. She denies any nausea or vomiting. She denies any fevers, chills, chest pain or shortness of breath. She denies any additional abdominal pain. 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, murmur, edema bilateral ankles much of the time, OA in back, basal cell skin cancer removed from nose x 2, History of Any Multi-Drug Resistant Organisms: None Reported Past Surgical History: Appendectomy, Section, Cholecystectomy, Hysterectomy, Tonsillectomy Additional Past Surgical History / Comment(s): Bilateral cataract removal with lens implants, D&C's, hysteroscopy, hysterectomy with BSO, basal cell skin cancer removed from nose x 2, colonoscopy x 2, ear growth removed as Past Anesthesia/Blood Transfusion Reactions: No Reported Reaction Past Psychological History: No Psychological Hx Reported Smoking Status: Never smoker Past Alcohol Use History: Rare Past Drug Use History: None Reported - Past Family History Father Family Medical History: Coronary Artery Disease (CAD), Dementia Additional Family Medical History / Comment(s): Father at age 65 yrs. Mother Additional Family Medical History / Comment(s): Mother had some sort of lung problem. She was a nonsmoker. She lived into her 80's. Medications and Allergies Home Medications Medication Instructions Recorded Confirmed Type Bisoprolol-Hctz 10-6.25 mg [Ziac 1 tab PO DAILY 11/26/15 08/17/18 History 10-6.25 MG] Fenofibrate 160 mg PO DAILY 11/26/15 08/17/18 History Glucosam/Robbin-Msm1/C/Jack/Bosw 1 tab PO DAILY 10/30/16 08/17/18 History [Glucosamine-Chondroitin Tablet] Multivit-Min/Iron/Folic/Lutein 1 tab PO DAILY 10/30/16 08/17/18 History [Centrum Silver Women Tablet] [place]-3 Fatty Acids/Fish Oil [Fish 1 cap PO DAILY 10/30/16 08/17/18 History Oil 1,000 mg Softgel] Dicyclomine [Bentyl] 10 mg PO TID #10 capsule 08/14/18 08/17/18 Rx Ondansetron Odt [Zofran ODT] 4 mg PO Q8HR PRN #12 tab 08/14/18 08/17/18 Rx Acetaminophen/Diphenhydramine 1 tab PO HS 08/17/18 08/17/18 History [Tylenol PM 500-25mg] Ibuprofen [Motrin Ib] 600 mg PO Q8HR 08/17/18 08/17/18 History Allergies Allergy/AdvReac Type Severity Reaction Status Date / Time prednisone AdvReac Severe Rapid Verified 08/17/18 11:55 Heart Rate codeine AdvReac Hallucinati Verified 08/17/18 11:55 ons Surgical - Exam Osteopathic Statement: *. No significant issues noted on an osteopathic structural exam other than those noted in the History and Physical/Consult. Vital Signs Temp Pulse Resp BP Pulse Ox 98.6 F 73 20 158/68 96 08/17/18 04:53 08/17/18 04:53 08/17/18 04:53 08/17/18 04:53 08/17/18 04:53 - General well nourished, no distress - Eyes PERRL - ENT normal mucosa, no hearing loss - Neck trachea midline - Respiratory No difficulty with respiration - Abdomen Soft, nontender, nondistended, no rebound, no guarding, palpable right inguinal hernia, reducible - Psychiatric oriented to time, oriented to person, oriented to place Results - Labs 08/17/18 07:55 08/17/18 07:55 Abnormal Lab Results - Last 24 Hours (Table) 08/17/18 08/17/18 Range/Units 07:55 09:00 Glucose 122 H (74-99) mg/dL AST 37 H (14-36) U/L Urine Appearance Turbid H (Clear) Urine Protein Trace H (Negative) Urine Ketones Trace H (Negative) Diabetes panel 08/17/18 Range/Units 07:55 Sodium 141 (137-145) mmol/L Potassium 4.4 (3.5-5.1) mmol/L Chloride 106 (98-107) mmol/L Carbon Dioxide 25 (22-30) mmol/L BUN 17 (7-17) mg/dL Creatinine 0.64 (0.52-1.04) mg/dL Glucose 122 H (74-99) mg/dL Calcium 9.8 (8.4-10.2) mg/dL AST 37 H (14-36) U/L ALT 35 (9-52) U/L Alkaline Phosphatase 47 (38-126) U/L Total Protein 7.1 (6.3-8.2) g/dL Albumin 3.9 (3.5-5.0) g/dL Calcium panel 08/17/18 Range/Units 07:55 Calcium 9.8 (8.4-10.2) mg/dL Albumin 3.9 (3.5-5.0) g/dL Pituitary panel 08/17/18 Range/Units 07:55 Sodium 141 (137-145) mmol/L Potassium 4.4 (3.5-5.1) mmol/L Chloride 106 (98-107) mmol/L Carbon Dioxide 25 (22-30) mmol/L BUN 17 (7-17) mg/dL Creatinine 0.64 (0.52-1.04) mg/dL Glucose 122 H (74-99) mg/dL Calcium 9.8 (8.4-10.2) mg/dL Adrenal panel 08/17/18 Range/Units 07:55 Sodium 141 (137-145) mmol/L Potassium 4.4 (3.5-5.1) mmol/L Chloride 106 (98-107) mmol/L Carbon Dioxide 25 (22-30) mmol/L BUN 17 (7-17) mg/dL Creatinine 0.64 (0.52-1.04) mg/dL Glucose 122 H (74-99) mg/dL Calcium 9.8 (8.4-10.2) mg/dL Total Bilirubin 0.9 (0.2-1.3) mg/dL AST 37 H (14-36) U/L ALT 35 (9-52) U/L Alkaline Phosphatase 47 (38-126) U/L Total Protein 7.1 (6.3-8.2) g/dL Albumin 3.9 (3.5-5.0) g/dL - Imaging CT scan - abdomen: report reviewed, image reviewed CT scan - pelvis: report reviewed, image reviewed (Right and left inguinal hernia noted, does not contain bowel) Assessment and Plan (1) Inguinal hernia Narrative/Plan: 77-year-old female with bilateral inguinal hernia - There does not appear to be any incarceration of the hernia - Patient is very comfortable with pain medication and currently states she has no pain - I did discuss the case with the primary care physician, we will plan for surgery in the next 2-3 days and discharge patient home and perform surgery as an outpatient procedure Current Visit: Yes Status: Acute Code(s): K40.90 - UNIL INGUINAL HERNIA, W/ O OBST OR GANGR, NOT SPCF RECUR SNOMED Code(s): 347796418
[2018-08-17] MEDS ORDERED: DICYCLOMINE 10 MG CAP PO SCH (16:00)
[2018-08-18] MEDS ORDERED: FENOFIBRATE 160 MG TAB PO SCH (09:00)
== END 2018-08-17 15:10 | disposition home or self-care (01) ==
LOC: EC 04:40 → 4SSUR 07:07
PROVIDERS: ADMIT Family Medicine; ATTEND Family Medicine
DX: K40.20 Bilateral inguinal hernia, without obstruction or gangrene, not specified as recurrent (principal); R11.0 Nausea; K21.9 Gastro-esophageal reflux disease without esophagitis; J44.9 Chronic obstructive pulmonary disease, unspecified; I50.9 Heart failure, unspecified; I11.0 Hypertensive heart disease with heart failure; E78.5 Hyperlipidemia, unspecified; M19.90 Unspecified osteoarthritis, unspecified site; Z79.899 Other long term (current) drug therapy; Z88.5 Allergy status to narcotic agent; Z88.8 Allergy status to other drugs, medicaments and biological substances; Z86.73 Personal history of transient ischemic attack (TIA), and cerebral infarction without residual deficits; Z85.828 Personal history of other malignant neoplasm of skin; Z87.01 Personal history of pneumonia (recurrent); Z90.710 Acquired absence of both cervix and uterus; Z90.722 Acquired absence of ovaries, bilateral; Z90.79 Acquired absence of other genital organ(s); Z90.49 Acquired absence of other specified parts of digestive tract; Z90.89 Acquired absence of other organs; Z98.42 Cataract extraction status, left eye; Z98.41 Cataract extraction status, right eye; Z96.1 Presence of intraocular lens; Z82.49 Family history of ischemic heart disease and other diseases of the circulatory system; Z81.8 Family history of other mental and behavioral disorders
CPT/HCPCS: 96376; 96374; 96375; 99284; 80053; 82150; 83690; 85025; 81001; G0378; J2270; J2405

== ENCOUNTER 2018-08-20 10:39 | Day surgery (SDC) | payer MEDICARE, OTHER ==
[2018-08-19 11:53] VITALS: BMI 31.6
[~2018-08-20 10:39] MED LIST: HEPARIN SODIUM,PORCINE 5,000 UNIT/ML 1 ML VIAL SQ ONE; ceFAZolin IN SWFI 2 GM/20 ML SYRINGE IVP ONE
[2018-08-20 12:12] LABS: Glucose,Whole Blood 110 mg/dL (75-99)
[2018-08-20] MEDS ORDERED: MIDAZOLAM 2 MG/2 ML VIAL IV ONE (12:30)
[2018-08-20] MEDS ORDERED: LACTATED RINGERS 1,000 ML IV ONE ×2 (12:48→15:03)
[2018-08-20] MEDS ORDERED: LIDOCAINE 1% 20 ML VIAL (10MG/ML) FOR IV START INTRADERMA ONE (12:48)
[2018-08-20] MEDS ORDERED: ONDANSETRON 4 MG/2 ML VIAL IVP ONE (12:52)
[2018-08-20] MEDS ORDERED: GLYCOPYRROLATE 0.2 MG/ML 2 ML VIAL ONE (13:35)
[2018-08-20] MEDS ORDERED: ROCURONIUM BROMIDE 10 MG/ML 10 ML VIAL IV ONE (13:35)
[2018-08-20] MEDS ORDERED: PROPOFOL 10 MG/ML 20 ML VIAL IV ONE (13:35)
[2018-08-20] MEDS ORDERED: fentaNYL (PF) 50 MCG/ML 2 ML AMP ONE (13:35)
[2018-08-20] MEDS ORDERED: LIDOCAINE 1% INJ 10MG/ML (20 ML MDV) ONE (13:35)
[2018-08-20] MEDS ORDERED: MIDAZOLAM 2 MG/2 ML VIAL ONE (13:35)
[2018-08-20] MEDS ORDERED: NEOSTIGMINE 1 MG/ML 10 ML VIAL ONE (13:35)
[2018-08-20] MEDS ORDERED: BUPIVACAIN-EPI 0.25%-1:200,000 30 ML VIAL SQ ONE ×3 (14:05→14:23)
--- NOTE | 2018-08-20 15:19 | P.OP ---
Date of Procedure: 08/20/18 Preoperative Diagnosis: Right inguinal hernia Postoperative Diagnosis: Right inguinal hernia Procedure(s) Performed: Robotic right inguinal hernia repair with mesh Anesthesia: JOSE Surgeon: Dino Dubois Pathology: none sent Condition: stable Disposition: same day Indications for Procedure: 77-year-old female presented for an elective right inguinal hernia repair. She has been having pain over the past week and did present to her primary care physician in the emergency department multiple times secondary to the pain. On imaging, right inguinal hernia was clearly visualized. Plan for robotic right inguinal hernia repair. Operative Findings: Right inguinal hernia Description of Procedure: The patient was brought into the operating suite and placed in supine position on the operating table. Sedation was provided by anesthesia the patient underwent endotracheal intubation. The patient was then prepped and draped in regular sterile fashion with arms tucked to the side. Johnson catheter was inserted. A left upper quadrant incision was made and the abdomen was entered under direct visualization using a Visiport of 5 mm size and pneumoperitoneum was achieved. From previous surgery, the patient did have adhesions. An additional 5 mm port was placed in the left lower quadrant and dissection was carried to remove the adhesions. The left lower quadrant port site was then removed and a right upper quadrant port site was created. An additional midline super umbilical port site was created of 12 mm size. The appropriate trochars were placed and the robot was docked. The right inguinal area was observed and it was clear that the patient had a right inguinal hernia. The peritoneum was then dissected from the medial to lateral position and the peritoneum was dissected. The peritoneal sac was dissected off of the round ligament. The hernia was noted to be a indirect hernia. Once completely dissected an appropriate amountwas noted for a mesh, a right-sided parietex progrip mesh was inserted and unrolled over the hernia floor. The peritoneum was then reapproximated using a 20V lock suture in running fashion. Hemostasis was maintained. The robot was undocked. The 12 mm trocar site was closed with 0 Vicryl suture under direct visualization using a Delroy-Lorraine device. All skin incisions were then closed with 4-0 Vicryl suture after pneumoperitoneum was released. Sterile dressing was applied. The patient was awakened in the operating suite and taken to postanesthesia care unit in stable condition.
[2018-08-20 15:27] VITALS: TEMP 97.2
[2018-08-20] MEDS: HYDROmorphone 1 MG/ML 1 ML SYRINGE IVP ONE ×2 (15:35→15:41)
[2018-08-20 16:27] VITALS: RESP 16
[2018-08-20 18:04] VITALS: PULSE 58
[2018-08-20 18:06] VITALS: BP 144/71
== END 2018-08-20 18:23 | disposition home or self-care (01) ==
LOC: OR 10:39
PROVIDERS: ATTEND Surgery
DX: K40.90 Unilateral inguinal hernia, without obstruction or gangrene, not specified as recurrent (principal); I11.0 Hypertensive heart disease with heart failure; I50.9 Heart failure, unspecified; E78.5 Hyperlipidemia, unspecified; K21.9 Gastro-esophageal reflux disease without esophagitis; J44.9 Chronic obstructive pulmonary disease, unspecified; Z88.5 Allergy status to narcotic agent; Z88.8 Allergy status to other drugs, medicaments and biological substances; Z79.891 Long term (current) use of opiate analgesic; Z79.1 Long term (current) use of non-steroidal anti-inflammatories (NSAID); Z79.899 Other long term (current) drug therapy
CPT/HCPCS: 49650; C1781; J2250; J1644; J2710; J2405; J2001; J3010; J1170; J2704; J0690

== ENCOUNTER → 2019-05-21 | Outpatient (CLI) | payer MEDICARE, OTHER ==
--- NOTE | 2019-05-21 15:34 | XR ---
EXAMINATION TYPE: XR chest 2V DATE OF EXAM: 05/21/2019 COMPARISON: 10/30/2016 HISTORY: Chronic shortness of breath TECHNIQUE: Frontal and lateral views of the chest are obtained. FINDINGS: There is no focal air space opacity, pleural effusion, or pneumothorax seen. Degenerative changes of the shoulders are noted. Interstitial prominence is seen throughout and is chronic with bi apical scarring. Reticular opacities at the lung bases have improved from the prior. Cardiomediastina l silhouette is enlarged. Osseous demineralization is seen throughout. Moderate multilevel degenerati ve changes of the thoracic spine. IMPRESSION: Findings of interstitial lung disease. Superimposed mild interstitial pulmonary edema is possible. Correlate for superimposed congestive heart failure.
--- NOTE | 2019-05-22 19:16 | ECHOF ---
Referral Reason:R07.89 Chest pain MEASUREMENTS -------- HEIGHT: 165.1 cm WEIGHT: 88.5 kg BP: IVSd: 1.0 cm (0.6 - 1.1) LVIDd: 3.7 cm (3.9 - 5.3) LVPWd: 1.1 cm (0.6 - 1.1) IVSs: 1.8 cm LVIDs: 2.1 cm LVPWs: 1.3 cm RVIDd: 2.4 cm (< 3.3) LAESV Index (A-L): 25.70 ml/m MV E Rodo: 0.87 m/s MV DecT: 204 ms MV A Rodo: 0.98 m/s MV E/A Ratio: 0.89 FINDINGS -------- Sinus rhythm. This was a technically difficult study with suboptimal parasternal views. The left ventricular size is normal. There is mild concentric left ventricular hypertrophy. Overa ll left ventricular systolic function is low-normal with, an EF between 50 - 55 %. The diastolic fi lling pattern is normal for the age of the patient 9.64. The RV was not well visualized. Normal LA size by volume 22+/-6 ml/m2. The right atrial size is normal. xx ml of Lumason was utilized for enhancement of images. Interatrial and interventricular septum intact. The aortic valve was not well visualized. There is no evidence of aortic regurgitation. There is no evidence of aortic stenosis. Mild mitral annular calcification present. There is trace mitral regurgitation. The tricuspid valve was not well visualized. Unable to estimate RVSP due to inadequate TR jet spect ral doppler profile. The pulmonic valve was not well visualized. The aortic root size is normal. IVC Not well visulized. There is no pericardial effusion. CONCLUSIONS -------- 1. Sinus rhythm. 2. This was a technically difficult study with suboptimal parasternal views. 3. The left ventricular size is normal. 4. There is mild concentric left ventricular hypertrophy. 5. Overall left ventricular systolic function is low-normal with, an EF between 50 - 55 %. 6. The diastolic filling pattern is normal for the age of the patient 9.64 7. The RV was not well visualized. 8. Normal LA size by volume 22+/-6 ml/m2. 9. The right atrial size is normal. 10. xx ml of Lumason was utilized for enhancement of images. 11. Interatrial and interventricular septum intact. 12. The aortic valve was not well visualized. 13. There is no evidence of aortic regurgitation. 14. There is no evidence of aortic stenosis. 15. Mild mitral annular calcification present. 16. There is trace mitral regurgitation. 17. The tricuspid valve was not well visualized. 18. Unable to estimate RVSP due to inadequate TR jet spectral doppler profile. 19. The pulmonic valve was not well visualized. 20. The aortic root size is normal. 21. IVC Not well visulized. 22. There is no pericardial effusion. LOCOMOTIVE CRANE ENGINEER: Sally Rubio RDCS
== END | disposition home or self-care (01) ==
LOC: RADECHMAIN 14:55
PROVIDERS: ATTEND Family Medicine
DX: R07.89 Other chest pain (principal); I05.8 Other rheumatic mitral valve diseases; J84.9 Interstitial pulmonary disease, unspecified
CPT/HCPCS: 71046; C8929; Q9950; 93306

== ENCOUNTER → 2019-05-23 | Outpatient (CLI) | payer MEDICARE, OTHER ==
[2019-05-23 10:57] LABS: Basophils # (A) 0.1 k/uL (0-0.2); Basophils % (A) 1 %; Eosinophils # (A) 0.3 k/uL (0-0.7); Eosinophils % (A) 3 %; HCT 44.9 % (34.0-46.0); HGB 14.4 gm/dL (11.4-16.0); Lymphocytes # (A) 3.4 k/uL (1.0-4.8); Lymphocytes % (A) 37 %; MCH 32.2 pg (25.0-35.0); MCV 100.6 fL (80.0-100.0); Mean Platelet Volume 6.7; Monocytes # (A) 0.6 k/uL (0-1.0); Monocytes % (A) 6 %; Neutrophils # (A) 4.5 k/uL (1.3-7.7); Neutrophils % (A) 50 %; Platelet Count 315 k/uL (150-450); RBC 4.46 m/uL (3.80-5.40); RDW 12.8 % (11.5-15.5); WBC 9.1 k/uL (3.8-10.6)
[2019-05-23 17:15] LABS: Albumin 3.9 g/dL (3.80-4.90); Albumin/Globulin Ratio 1.7 (1.60-3.17); Anion Gap 7.9 mmol/L (4.00-12.00); BUN/Creat Ratio 26.25 Ratio (12.00-20.00); Calcium 9.3 mg/dL (8.7-10.3); Carbon Dioxide 24.1 mmol/L (21.6-31.8); Globulin 2.3 g/dL (1.6-3.3); LDL Cholesterol,Calculated 87.8 mg/dL (0.0-131.0); Potassium 4.3 mmol/L (3.5-5.5); Total Bilirubin 0.5 mg/dL (0.3-1.2); Total Protein 6.2 g/dL (6.2-8.2); VLDL Calculation 34.2 mg/dL (5.00-40.00)
[2019-05-23 17:43] LABS: Hemoglobin A1C 6.5 % (4.0-6.0)
== END ==
LOC: LABWHC1 10:25
PROVIDERS: ATTEND Family Medicine
DX: E78.5 Hyperlipidemia, unspecified (principal); R07.9 Chest pain, unspecified; J44.9 Chronic obstructive pulmonary disease, unspecified; E11.9 Type 2 diabetes mellitus without complications; R06.02 Shortness of breath; Z79.899 Other long term (current) drug therapy
CPT/HCPCS: 36415; 80053; 80061; 83036; 84439; 84443; 85025

== ENCOUNTER → 2019-07-15 | Outpatient (CLI) | payer MEDICARE, OTHER | LOC: CPPFTMAIN 12:54 | PROVIDERS: ATTEND Family Medicine | DX: J44.9 Chronic obstructive pulmonary disease, unspecified (principal); J98.8 Other specified respiratory disorders | CPT/HCPCS: 94060; 94726; 94729 ==

== ENCOUNTER 2023-05-26 10:19 | Inpatient (IN) | payer MEDICARE, OTHER ==
[2023-05-26] MEDS ORDERED: MORPHINE SULFATE 2 MG/ML SYRINGE IVP STA (10:38)
--- NOTE | 2023-05-26 10:40 | ED ---
General Adult HPI - General Chief complaint: Skin/Abscess/Foreign Body Stated complaint: Cellulitis Time Seen by Provider: 05/26/23 10:24 Source: patient, EMS, RN notes reviewed Mode of arrival: EMS Limitations: no limitations - History of Present Illness Initial comments: Patient is a pleasant 82-year-old female presenting to the emergency department with concern with right leg infection. Onset of symptoms was on about a week ago. Patient is having increased swelling and discomfort and redness. Patient states it feels warm. No history of similar symptoms previously. Patient has history of edema however unclear why. No fevers. - Related Data Home Medications Medication Instructions Recorded Confirmed Bisoprolol-Hctz 10-6.25 mg [Ziac 1 tab PO DAILY@1200 11/26/15 05/26/23 10-6.25 MG] Multivit-Min/Iron/Folic/Lutein 1 tab PO HS 10/30/16 05/26/23 [Centrum Silver Women Tablet] Acetaminophen/Diphenhydramine 1 tab PO HS 05/26/23 05/26/23 [Tylenol Pm Ex-Strength Caplet] Cholecalciferol [Vitamin D3 (25 25 mcg PO HS 05/26/23 05/26/23 Mcg = 1000 Iu)] Docusate [Colace] 100 mg PO HS 05/26/23 05/26/23 Omeprazole [PriLOSEC] 20 mg PO DAILY@1200 05/26/23 05/26/23 Petrolatum, White [Aquaphor] 1 applic TOPICAL BID 05/26/23 05/26/23 Rosuvastatin [Crestor] 10 mg PO DIRECTED 05/26/23 05/26/23 Allergies Allergy/AdvReac Type Severity Reaction Status Date / Time prednisone AdvReac Severe Rapid Verified 05/26/23 12:04 Heart Rate codeine AdvReac Hallucinati Verified 05/26/23 12:04 ons Review of Systems ROS Statement: Those systems with pertinent positive or pertinent negative responses have been documented in the HPI. ROS Other: All systems not noted in ROS Statement are negative. 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, murmur, edema bilateral ankles much of the time, OA in back, basal cell skin cancer removed from nose x 2, History of Any Multi-Drug Resistant Organisms: None Reported Past Surgical History: Appendectomy, Section, Cholecystectomy, Hysterectomy, Tonsillectomy Additional Past Surgical History / Comment(s): Bilateral cataract removal with lens implants, D&C's, hysteroscopy, hysterectomy with BSO, basal cell skin cancer removed from nose x 2, colonoscopy x 2, ear growth removed as Past Anesthesia/Blood Transfusion Reactions: No Reported Reaction Past Psychological History: No Psychological Hx Reported Past Alcohol Use History: Rare Past Drug Use History: None Reported - Past Family History Father Family Medical History: Coronary Artery Disease (CAD), Dementia Additional Family Medical History / Comment(s): Father at age 65 yrs. Mother Additional Family Medical History / Comment(s): Mother had some sort of lung problem. She was a nonsmoker. She lived into her 80's. General Exam Limitations: no limitations General appearance: alert, in no apparent distress Head exam: Present: normocephalic Eye exam: Present: normal appearance Neck exam: Present: normal inspection Respiratory exam: Present: normal lung sounds bilaterally Cardiovascular Exam: Present: regular rate, normal rhythm Expanded Peripheral pulses: 2+: Posterior Tibialis (R) GI/Abdominal exam: Present: soft. Absent: tenderness Extremities exam: Present: other (Right lower leg with edema. There is erythema from the ankle up to the knee, mostly anterior with associated warmth and drainage) Neurological exam: Present: alert Psychiatric exam: Present: normal affect, normal mood Skin exam: Present: rash, erythema Course Vital Signs 05/26/23 05/26/23 10:20 12:50 Temperature 98.6 F Pulse Rate 85 76 Respiratory 18 18 Rate Blood Pressure 169/73 143/59 O2 Sat by Pulse 96 94 L Oximetry Medical Decision Making - Medical Decision Making Was pt. sent in by a medical professional or institution (, PA, SECURITY ATTENDANT, urgent care, hospital, or alf...) When possible be specific @ -No Did you speak to anyone other than the patient for history (EMS, parent, family, police, friend...)? What history was obtained from this source @ -No Did you review nursing and triage notes (agree or disagree)? Why? @ -I reviewed and agree with nursing and triage notes Were old charts reviewed (outside hosp., previous admission, EMS record, old EKG, old radiological studies, urgent care reports/EKG's, alf records)? Report findings @ -No old charts were reviewed Differential Diagnosis (chest pain, altered mental status, abdominal pain women, abdominal pain men, vaginal bleeding, weakness, fever, dyspnea, syncope, headache, dizziness, GI bleed, back pain, seizure, CVA, palpatations, mental health, musculoskeletal)? @ -Differential Fever: Pneumonia, viral URI, endocarditis, myocarditis, pericarditis, otitis, sinusitis, peritonsillar Abscess, retropharyngeal Abscess, epiglottitis, peritonitis, appendicitis, Katarzyna cystitis, diverticulitis, hepatitis, colitis, UTI, PID, TOA, pyelonephritis, prostatitis, epididymitis, meningitis, enc ephalitis, pulmonary embolism, CVA, thyroid storm, pancreatitis, adrenal crisis, cavernous sinus thrombosis, this is not meant to be an all-inclusive list. EKG interpreted by me (3pts min.). @ -As above X-rays interpreted by me (1pt min.). @ -X-ray right tib-fib reveals no acute process CT interpreted by me (1pt min.). @ -None done U/S interpreted by me (1pt. min.). @ -None done What testing was considered but not performed or refused? (CT, X-rays, U/S, labs)? Why? @ -None What meds were considered but not given or refused? Why? @ -None Did you discuss the management of the patient with other professionals (professionals i.e. DrBrigid, PA, SECURITY ATTENDANT, lab, RT, psych nurse, social media designer, strip picker, teacher, resident medical officer, caser)? Give summary @ -Case was discussed with Dr. Cruz, who will admit For Dr. Peña Was smoking cessation discussed for >3mins.? @ -No Was critical care preformed (if so, how long)? @ -No Were there social determinants of health that impacted care today? How? (Homelessness, low income, unemployed, alcoholism, drug addiction, transportation, low edu. Level, literacy, decrease access to med. care, correction, rehab)? @ -No Was there de-escalation of care discussed even if they declined (Discuss DNR or withdrawal of care, Hospice)? DNR status @ -No What co-morbidities impacted this encounter? (DM, HTN, Smoking, COPD, CAD, Cancer, CVA, ARF, Chemo, Hep., AIDS, mental health diagnosis, sleep apnea, morbid obesity)? @ -None Was patient admitted / discharged? Hospital course, mention meds given and route, prescriptions, significant lab abnormalities, going to OR and other pertinent info. @ -Patient reevaluated and updated. Patient be admitted with IV antibiotics. Patient has elevated white blood cell count and lactic acid. Blood cultures have been ordered. IV antibiotics will be ordered. Undiagnosed new problem with uncertain prognosis? @ -No Drug Therapy requiring intensive monitoring for toxicity (Heparin, Nitro, Insulin, Cardizem)? @ -No Were any procedures done? @ -No Diagnosis/symptom? @ -Right lower leg cellulitis Acute, or Chronic, or Acute on Chronic? @ -Acute Uncomplicated (without systemic symptoms) or Complicated (systemic symptoms)? @ -default Side effects of treatment? @ -No Exacerbation, Progression, or Severe Exacerbation? @ -No Poses a threat to life or bodily function? How? (Chest pain, USA, AL, pneumonia, PE, COPD, DKA, ARF, appy, cholecystitis, CVA, Diverticulitis, Homicidal, Suicidal, threat to staff... and all critical care pts) @ -No - Lab Data Result diagrams: 05/26/23 11:19 05/26/23 11:19 Lab Results 05/26/23 05/26/23 05/26/23 Range/Units 11:19 11:19 11:19 WBC 15.8 H (3.8-10.6) k/uL RBC 4.27 (3.80-5.40) m/uL Hgb 14.4 (11.4-16.0) gm/dL Hct 42.9 (34.0-46.0) % MCV 100.5 H (80.0-100.0) fL MCH 33.8 (25.0-35.0) pg MCHC 33.6 (31.0-37.0) g/dL RDW 12.4 (11.5-15.5) % Plt Count 316 (150-450) k/uL MPV 7.9 Neutrophils % 71 % Lymphocytes % 19 % Monocytes % 6 % Eosinophils % 2 % Basophils % 1 % Neutrophils # 11.1 H (1.3-7.7) k/uL Lymphocytes # 3.1 (1.0-4.8) k/uL Monocytes # 0.9 (0-1.0) k/uL Eosinophils # 0.3 (0-0.7) k/uL Basophils # 0.1 (0-0.2) k/uL PT 9.7 (9.0-12.0) sec INR 0.9 (<1.2) APTT 22.7 (22.0-30.0) sec Sodium 137 (137-145) mmol/L Potassium 5.0 (3.5-5.1) mmol/L Chloride 103 (98-107) mmol/L Carbon Dioxide 26 (22-30) mmol/L Anion Gap 8 mmol/L BUN 16 (7-17) mg/dL Creatinine 0.45 L (0.52-1.04) mg/dL Est GFR (CKD-EPI)AfAm >90 (>60 ml/min/1.73 sqM) Est GFR (CKD-EPI)NonAf >90 (>60 ml/min/1.73 sqM) Glucose 170 H (74-99) mg/dL Plasma Lactic Acid Juancho (0.7-2.0) mmol/L Calcium 9.4 (8.4-10.2) mg/dL Total Bilirubin 0.7 (0.2-1.3) mg/dL AST 33 (14-36) U/L ALT 18 (4-34) U/L Alkaline Phosphatase 88 (38-126) U/L Total Protein 7.0 (6.3-8.2) g/dL Albumin 3.7 (3.5-5.0) g/dL 05/26/23 Range/Units 11:19 WBC (3.8-10.6) k/uL RBC (3.80-5.40) m/uL Hgb (11.4-16.0) gm/dL Hct (34.0-46.0) % MCV (80.0-100.0) fL MCH (25.0-35.0) pg MCHC (31.0-37.0) g/dL RDW (11.5-15.5) % Plt Count (150-450) k/uL MPV Neutrophils % % Lymphocytes % % Monocytes % % Eosinophils % % Basophils % % Neutrophils # (1.3-7.7) k/uL Lymphocytes # (1.0-4.8) k/uL Monocytes # (0-1.0) k/uL Eosinophils # (0-0.7) k/uL Basophils # (0-0.2) k/uL PT (9.0-12.0) sec INR (<1.2) APTT (22.0-30.0) sec Sodium (137-145) mmol/L Potassium (3.5-5.1) mmol/L Chloride (98-107) mmol/L Carbon Dioxide (22-30) mmol/L Anion Gap mmol/L BUN (7-17) mg/dL Creatinine (0.52-1.04) mg/dL Est GFR (CKD-EPI)AfAm (>60 ml/min/1.73 sqM) Est GFR (CKD-EPI)NonAf (>60 ml/min/1.73 sqM) Glucose (74-99) mg/dL Plasma Lactic Acid Juancho 2.3 H* (0.7-2.0) mmol/L Calcium (8.4-10.2) mg/dL Total Bilirubin (0.2-1.3) mg/dL AST (14-36) U/L ALT (4-34) U/L Alkaline Phosphatase (38-126) U/L Total Protein (6.3-8.2) g/dL Albumin (3.5-5.0) g/dL Disposition Clinical Impression: Cellulitis of right lower leg Disposition: ADMITTED IP TO THIS HOSP Is patient prescribed a controlled substance at d/c from ED?: No Referrals: Andrew Peña DO [Primary Care Provider] - 1-2 days Time of Disposition: 14:05
[2023-05-26 11:50] LABS: Basophils # (A) 0.1 k/uL (0-0.2); Basophils % (A) 1 %; Eosinophils # (A) 0.3 k/uL (0-0.7); Eosinophils % (A) 2 %; HCT 42.9 % (34.0-46.0); HGB 14.4 gm/dL (11.4-16.0); Lymphocytes # (A) 3.1 k/uL (1.0-4.8); Lymphocytes % (A) 19 %; MCH 33.8 pg (25.0-35.0); MCHC 33.6 g/dL (31.0-37.0); MCV 100.5 fL (80.0-100.0); Mean Platelet Volume 7.9; Monocytes # (A) 0.9 k/uL (0-1.0); Monocytes % (A) 6 %; Neutrophils # (A) 11.1 k/uL (1.3-7.7); Neutrophils % (A) 71 %; Platelet Count 316 k/uL (150-450); RBC 4.27 m/uL (3.80-5.40); RDW 12.4 % (11.5-15.5); WBC 15.8 k/uL (3.8-10.6)
--- NOTE | 2023-05-26 12:00 | XR ---
EXAMINATION TYPE: XR tibia fibula RT DATE OF EXAM: 05/26/2023 CLINICAL HISTORY: pain TECHNIQUE: AP and lateral images of the right tibia and fibula are obtained. COMPARISON: None. FINDINGS: There is no acute fracture/dislocation evident. Moderate degenerative changes about the kn ee. Soft tissue swelling noted right lower extremity related to cellulitis. Correlate clinically. IMPRESSION: There is no acute fracture or dislocation seen. ICD 10 NO FRACTURE, INITIAL EVALUATION
[2023-05-26 12:02] LABS: ALT 18 U/L (4-34); AST 33 U/L (14-36); African American GFR (CKD) >90 (>60 ml/min/1.73 sqM); Albumin 3.7 g/dL (3.5-5.0); Alkaline Phosphatase 88 U/L (38-126); Anion Gap 8 mmol/L; Blood Urea Nitrogen 16 mg/dL (7-17); Calcium 9.4 mg/dL (8.4-10.2); Carbon Dioxide 26 mmol/L (22-30); Chloride 103 mmol/L (98-107); Glucose 170 mg/dL (74-99); Non-African American GFR(CKD) >90 (>60 ml/min/1.73 sqM); Sodium 137 mmol/L (137-145); Total Bilirubin 0.7 mg/dL (0.2-1.3)
[2023-05-26 12:06] LABS: INR 0.9 (<1.2); Partial Thromboplastin Time 22.7 sec (22.0-30.0); Prothrombin Time 9.7 sec (9.0-12.0)
[2023-05-26] MEDS ORDERED: MORPHINE SULFATE 4 MG/ML SYRINGE IVP STA (13:22)
[2023-05-26] MEDS: MORPHINE SULFATE 2 MG/ML SYRINGE IVP PRN (17:48)
--- NOTE | 2023-05-26 20:59 | HP ---
HISTORY AND PHYSICAL HISTORY OF PRESENT ILLNESS: This is an 82-year-old woman with a past medical history of multiple medical problems including lymphedema, was complaining of right leg infection for the past several days. The patient has increased swelling and pain. The patient came to [facility] and admitted for further evaluation and treatment. There is no history of any fever, rigors, or chills. PAST MEDICAL HISTORY: Reviewed include lymphedema, COPD, CHF. Rest of the history and rest of the chart is also reviewed. HOME MEDICATIONS: Reviewed include Crestor, dose and rest of medications reviewed. ALLERGIES: Prednisone and codeine. FAMILY HISTORY: History of CAD, dementia. SOCIAL HISTORY: No history of smoking, alcohol. REVIEW OF SYSTEMS: A 14-point review of systems is negative except as mentioned earlier. PHYSICAL EXAMINATION: VITAL SIGNS: Pulse 78, blood pressure ntd, respirations 18. HEENT: Conjunctivae normal. NECK: No JVD. CARDIOVASCULAR: S1, S2. RESPIRATIONS: Breath sounds diminished at the bases. Scattered rhonchi. ABDOMEN: Soft, nontender. LEGS: No edema. NERVOUS SYSTEM: Nonfocal. LABORATORY DATA: WBC 15.8. Rest of the labs are noted. ASSESSMENT: 1. Acute right leg cellulitis. 2. History of lymphedema. 3. History of chronic obstructive pulmonary disease. 4. Hypertension. 5. Hyperlipidemia. 6. Multiple medical issues. RECOMMENDATIONS: This is an 82-year-old woman, who presented with multiple complex medical issues. We will monitor the patient closely. I recommend empiric antibiotics. Infectious Disease evaluation. Resume the home medications once they are confirmed. Prognosis guarded. Further recommendations to follow. See orders for further details. MMODL / IJN: [id number] / MTDD
[2023-05-26] MEDS: ACETAMINOPHEN TAB 500 MG TAB PO SCH (21:45)
[2023-05-26] MEDS: DOCUSATE 100 MG CAP PO SCH (21:46)
[2023-05-26] MEDS: diphenhydrAMINE 25 MG CAP PO SCH (21:46)
[2023-05-26] MEDS: MULTIVITAMINS, THERA 1 EACH TAB PO SCH (21:46)
[2023-05-26] MEDS: CHOLECALCIFEROL 25 MCG (1000 IU) TABLET PO SCH (21:46)
[2023-05-27] MEDS: ATORVASTATIN 20 MG TAB PO SCH (08:01)
[2023-05-27] MEDS: BISOPROLOL-HCTZ 10-6.25 MG 1 EACH TAB PO SCH (08:01)
[2023-05-27] MEDS: PANTOPRAZOLE 40 MG TABLET PO SCH (08:01)
[2023-05-27 10:48] LABS: Basophils # (A) 0.08 X 10*3/uL (0.00-0.10); Basophils % (A) 0.7 %; Eosinophils # (A) 0.32 X 10*3/uL (0.04-0.35); Eosinophils % (A) 2.7 %; HCT 41.6 % (37.2-46.3); HGB 13.2 d/dL (12.0-15.0); Lymphocytes # (A) 4.42 X 10*3/uL (0.90-5.00); Lymphocytes % (A) 37.4 %; MCHC 31.7 d/dL (32.0-37.0); Mean Platelet Volume 9.2 FL (9.5-12.2); Monocytes # (A) 1.17 X 10*3/uL (0.20-1.00); Monocytes % (A) 9.9 %; NRBC Per 100 WBC 0 X 10*3/uL (0.00-0.01); Neutrophils # (A) 5.77 X 10*3/uL (1.80-7.70); Neutrophils % (A) 48.9 %; Platelet Count 295 X 10*3/uL (140-440); RBC 4.12 X 10*6/uL (4.10-5.20); RDW 13.1 % (11.5-14.5); WBC 11.81 X 10*3/uL (4.50-10.00)
[2023-05-27 11:53] LABS: Blood Urea Nitrogen 12.4 mg/dL (9.0-27.0); Calcium 9.2 mg/dL (8.7-10.3); Chloride 103 mmol/L (96-109); Glucose 110 mg/dL (70-110); Potassium 4.6 mmol/L (3.5-5.5); Sodium 140 mmol/L (135-145)
[2023-05-27] MEDS: MORPHINE SULFATE 2 MG/ML SYRINGE IVP PRN ×2 (15:09→20:00)
[2023-05-27] MEDS: ACETAMINOPHEN TAB 500 MG TAB PO SCH (19:57)
[2023-05-27] MEDS: CHOLECALCIFEROL 25 MCG (1000 IU) TABLET PO SCH (19:57)
[2023-05-27] MEDS: diphenhydrAMINE 25 MG CAP PO SCH (19:59)
[2023-05-27] MEDS: MULTIVITAMINS, THERA 1 EACH TAB PO SCH (19:59)
[2023-05-27] MEDS: DOCUSATE 100 MG CAP PO SCH (19:59)
[2023-05-27] MEDS ORDERED: NYSTAT-TRIAMCIN 100,000-0.1 UNIT/GM-% CREAM 30 GM TUBE TOPICAL SCH (21:00)
[2023-05-27] MEDS: TRIAMCINOLONE 0.1% CREAM 80 GM TUBE TOPICAL SCH (21:57)
[2023-05-27] MEDS: NYSTATIN 100,000UNIT/GM CREAM 30 GM TUBE TOPICAL SCH (21:57)
--- NOTE | 2023-05-27 22:49 | P.CONS ---
History of Present Illness - Reason for Consult Consult date: 05/27/23 - History of Present Illness Patient is a 82-year-old female with a past medical history difficult for hypertension hyperlipidemia reflux heart failure COPD presenting the hospital with increasing swelling to bilateral lower extremity especially the right leg with associated redness and pain and did have a drainage patient symptom has been going on for more than a week or 2 however has been getting worse over the last day or 2 for the patient present to the hospital patient been complaining of pain to the right lower extremity with sharp 7-8 out of 10 no radiation with associated swelling redness and did have some clear drainage patient on presentation to the hospital was afebrile and no fever tachycardia subsequently patient was not tachycardic hypotensive or hypoxic did have vital of 15.8 with a left shift creatinine was normal lactic acid was elevated liver enzymes are normal patient did have x-ray of the tibia-fibula that was negative for any fracture patient was started on cefazolin infectious he was consulted for further management of antibiotic therapy 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, murmur, edema bilateral ankles much of the time, OA in back, basal cell skin cancer removed from nose x 2, History of Any Multi-Drug Resistant Organisms: None Reported Past Surgical History: Appendectomy, Section, Cholecystectomy, Hysterectomy, Tonsillectomy Additional Past Surgical History / Comment(s): Bilateral cataract removal with lens implants, D&C's, hysteroscopy, hysterectomy with BSO, basal cell skin cancer removed from nose x 2, colonoscopy x 2, ear growth removed as infant Past Anesthesia/Blood Transfusion Reactions: No Reported Reaction Smoking Status: Never smoker - Past Family History Father Family Medical History: Coronary Artery Disease (CAD), Dementia Additional Family Medical History / Comment(s): Father at age 65 yrs. Mother Additional Family Medical History / Comment(s): Mother had some sort of lung problem. She was a nonsmoker. She lived into her 80's. Medications and Allergies Home Medications Medication Instructions Recorded Confirmed Type Bisoprolol-Hctz 10-6.25 mg [Ziac 1 tab PO DAILY@1200 11/26/15 05/26/23 History 10-6.25 MG] Multivit-Min/Iron/Folic/Lutein 1 tab PO HS 10/30/16 05/26/23 History [Centrum Silver Women Tablet] Acetaminophen/Diphenhydramine 1 tab PO HS 05/26/23 05/26/23 History [Tylenol Pm Ex-Strength Caplet] Cholecalciferol [Vitamin D3 (25 25 mcg PO HS 05/26/23 05/26/23 History Mcg = 1000 Iu)] Docusate [Colace] 100 mg PO HS 05/26/23 05/26/23 History Omeprazole [PriLOSEC] 20 mg PO DAILY@1200 05/26/23 05/26/23 History Petrolatum, White [Aquaphor] 1 applic TOPICAL BID 05/26/23 05/26/23 History Rosuvastatin [Crestor] 10 mg PO DIRECTED 05/26/23 05/26/23 History Allergies Allergy/AdvReac Type Severity Reaction Status Date / Time prednisone AdvReac Severe Rapid Verified 05/26/23 12:04 Heart Rate codeine AdvReac Hallucinati Verified 05/26/23 12:04 ons Physical Exam Vitals: Vital Signs Temp Pulse Pulse Resp BP BP Pulse Ox 05/27/23 07:26 98.2 F 81 17 160/76 94 L 05/27/23 01:24 98.1 F 80 16 173/70 93 L 05/26/23 19:14 98.3 F 86 18 148/71 90 L 05/26/23 18:23 97.8 F 82 17 158/81 92 L 05/26/23 17:50 98.4 F 81 18 146/60 94 L 05/26/23 16:21 82 18 145/62 95 05/26/23 14:50 78 18 132/61 94 L Intake and Output 05/26/23 05/27/23 05/27/23 22:59 06:59 14:59 Other: # Voids 1 2 Weight 86.183 kg Results CBC & Chem 7: 05/27/23 06:02 05/27/23 06:02 Labs: Abnormal Lab Results - Last 24 Hours (Table) 05/27/23 05/27/23 Range/Units 06:02 06:02 WBC 11.81 H (4.50-10.00) X 10*3/uL MCV 101.0 H (80.0-97.0) FL MCHC 31.7 L (32.0-37.0) d/dL MPV 9.2 L (9.5-12.2) FL Monocytes # 1.17 H (0.20-1.00) X 10*3/uL Creatinine 0.5 L (0.6-1.5) mg/dL BUN/Creatinine Ratio 24.80 H (12.00-20.00) Ratio Microbiology - Last 24 Hours (Table) 05/26/23 17:52 Gram Stain - Preliminary Leg - Right Assessment and Plan Plan: 1patient presented hospital with increasing pain swelling redness and clear drainage from the right lower extremity in this patient with a complaint of right lower extremity venous stasis dermatitis and a component of possible cellulitis likely from gram-positive skin zain. 2we will ben the area of the redness. 3we will apply Mycolog cream to the right lower extremity. 4cefazolin 2 g every 8 hours. We will follow on clinical condition and cultures to further adjust medication if needed Thank you for this consultation we will follow the patient along with you Dictation was produced using [employer] dictation software. please excuse any grammatical, word or spelling errors. Time with Patient: Greater than 30
[2023-05-28] MEDS: MORPHINE SULFATE 2 MG/ML SYRINGE IVP PRN (02:47)
--- NOTE | 2023-05-28 03:17 | PN ---
PROGRESS NOTE DATE OF SERVICE: 05/27/2023 SUBJECTIVE: This is an 82-year-old woman, who was admitted with acute right leg cellulitis, also history of lymphedema. No chest pain. No palpitations. No fever. OBJECTIVE: VITAL SIGNS: Pulse 81, blood pressure 160/76, respirations 17. CHEST: Clear to auscultation. ABDOMEN: Soft. EXTREMITIES: Right leg cellulitis. LABORATORY DATA: 11.8. ASSESSMENT: 1. Acute right leg cellulitis. 2. History of lymphedema. 3. Chronic obstructive pulmonary disease. 4. Hypertension. 5. Hyperlipidemia. 6. Multiple medical issues. RECOMMENDATIONS: Recommend to continue current management and treatment, otherwise we will continue with IV antibiotics. Infectious Disease evaluation, obtain the cultures. Prognosis guarded. Further recommendations to follow. MMODL / IJN: [id number] /
[2023-05-28] MEDS: ATORVASTATIN 20 MG TAB PO SCH (09:21)
[2023-05-28] MEDS: NYSTATIN 100,000UNIT/GM CREAM 30 GM TUBE TOPICAL SCH ×2 (09:21→23:02)
[2023-05-28] MEDS: TRIAMCINOLONE 0.1% CREAM 80 GM TUBE TOPICAL SCH ×2 (09:22→23:02)
--- NOTE | 2023-05-28 12:35 | P.PN ---
Subjective This is a pleasant 82 years old female with multiple medical problems as below Was admitted for right leg cellulitis Continue with cefazolin ID Team on the case Objective - Vital Signs Vital signs: Vital Signs Temp 98.6 F 05/28/23 08:00 Pulse 74 05/28/23 08:00 Resp 18 05/28/23 08:00 BP 118/64 05/28/23 08:00 Pulse Ox 92 L 05/28/23 08:00 FiO2 Intake & Output 05/27/23 05/28/23 05/28/23 18:59 06:59 18:59 Intake Total 50 120 Balance 50 120 Intake: Intake, IV Titration 50 Amount ceFAZolin 2 gm In Sodium 50 Chloride 0.9% 50 ml @ 100 mls/hr IVPB Q8HR [facility] Rx# :[id number] Oral 120 Other: # Voids 5 3 # Bowel Movements 1 - Exam GENERAL: The patient is alert and oriented x3, not in any acute distress. Well developed, well nourished. HEENT: Pupils are round and equally reacting to light. EOMI. No scleral icterus. No conjunctival pallor. Normocephalic, atraumatic. No pharyngeal erythema. No thyromegaly. CARDIOVASCULAR: S1 and S2 present. No murmurs, rubs, or gallops. PULMONARY: Chest is clear to auscultation, no wheezing , no crackles. ABDOMEN: Soft, nontender, nondistended, normoactive bowel sounds. No palpable organomegaly. MUSCULOSKELETAL: No joint swelling or deformity. -EXTREMITIES: No cyanosis, clubbing, or pedal edema. Right leg cellulitis with redness swelling tenderness and erythema NEUROLOGICAL: Gross neurological examination did not reveal any focal deficits. SKIN: No rashes. no petechiae. - Labs CBC & Chem 7: 05/27/23 06:02 05/27/23 06:02 Labs: Microbiology - Last 24 Hours (Table) 05/26/23 11:25 Blood Culture - Preliminary Blood 05/26/23 11:10 Blood Culture - Preliminary Blood Assessment and Plan Assessment: Acute right leg cellulitis History of lymphedema Chronic obstructive pulmonary disease Hypertension Hyperlipidemia Plan: continue with cefazolin Follow-up culture results Continue with ID team consult Labs and medication were reviewed.. Continue same treatment. Continue with symptomatic treatment. Resume home medication. Monitor labs and vitals. DVT and GI prophylaxis. Further recommendations as per clinical course of the patient DVT prophylaxis: Subcutaneous heparin GI Prophylaxis: Pepcid PT/OT: Pending Prognosis is guarded
[2023-05-28] MEDS: PANTOPRAZOLE 40 MG TABLET PO SCH (13:21)
[2023-05-28] MEDS: BISOPROLOL-HCTZ 10-6.25 MG 1 EACH TAB PO SCH (13:21)
[2023-05-28 14:43] LABS: BUN/Creat Ratio 21.17 Ratio (12.00-20.00); Blood Urea Nitrogen 12.7 mg/dL (9.0-27.0); Carbon Dioxide 23.3 mmol/L (21.6-31.8); Chloride 105 mmol/L (96-109); Glucose 215 mg/dL (70-110); Potassium 4.2 mmol/L (3.5-5.5); Sodium 139 mmol/L (135-145)
[2023-05-28 14:53] LABS: Basophils % (A) 0.8 %; Eosinophils # (A) 0.37 X 10*3/uL (0.04-0.35); Eosinophils % (A) 3.1 %; HCT 42.6 % (37.2-46.3); HGB 13.7 d/dL (12.0-15.0); Lymphocytes # (A) 3.71 X 10*3/uL (0.90-5.00); Lymphocytes % (A) 30.8 %; MCH 32.5 pg (27.0-32.0); MCHC 32.2 d/dL (32.0-37.0); MCV 101.2 FL (80.0-97.0); Mean Platelet Volume 9.4 FL (9.5-12.2); Monocytes # (A) 1.01 X 10*3/uL (0.20-1.00); Monocytes % (A) 8.4 %; NRBC Per 100 WBC 0 X 10*3/uL (0.00-0.01); Neutrophils # (A) 6.78 X 10*3/uL (1.80-7.70); Neutrophils % (A) 56.4 %; Platelet Count 312 X 10*3/uL (140-440); RBC 4.21 X 10*6/uL (4.10-5.20); WBC 12.03 X 10*3/uL (4.50-10.00)
[2023-05-28] MEDS: ACETAMINOPHEN TAB 500 MG TAB PO SCH (23:00)
[2023-05-28] MEDS: diphenhydrAMINE 25 MG CAP PO SCH (23:01)
[2023-05-28] MEDS: DOCUSATE 100 MG CAP PO SCH (23:01)
[2023-05-28] MEDS: MULTIVITAMINS, THERA 1 EACH TAB PO SCH (23:01)
[2023-05-28] MEDS: HEPARIN SODIUM,PORCINE 5,000 UNIT/ML 1 ML VIAL SQ SCH (23:02)
[2023-05-28] MEDS: CHOLECALCIFEROL 25 MCG (1000 IU) TABLET PO SCH (23:02)
[2023-05-29] MEDS: ATORVASTATIN 20 MG TAB PO SCH (09:35)
[2023-05-29] MEDS: TRIAMCINOLONE 0.1% CREAM 80 GM TUBE TOPICAL SCH ×2 (09:36→21:12)
[2023-05-29] MEDS: HEPARIN SODIUM,PORCINE 5,000 UNIT/ML 1 ML VIAL SQ SCH ×3 (09:36→21:12)
[2023-05-29] MEDS: NYSTATIN 100,000UNIT/GM CREAM 30 GM TUBE TOPICAL SCH ×2 (09:36→21:12)
[2023-05-29 09:41] LABS: Basophils # (A) 0.1 k/uL (0-0.2); Basophils % (A) 1 %; Eosinophils # (A) 0.5 k/uL (0-0.7); Eosinophils % (A) 4 %; HCT 42.2 % (34.0-46.0); HGB 13.7 gm/dL (11.4-16.0); Lymphocytes # (A) 3.5 k/uL (1.0-4.8); Lymphocytes % (A) 31 %; MCH 33.1 pg (25.0-35.0); MCHC 32.4 g/dL (31.0-37.0); MCV 102.1 fL (80.0-100.0); Mean Platelet Volume 7.6; Monocytes # (A) 0.6 k/uL (0-1.0); Monocytes % (A) 5 %; Neutrophils # (A) 6.5 k/uL (1.3-7.7); Neutrophils % (A) 57 %; Platelet Count 318 k/uL (150-450); RBC 4.13 m/uL (3.80-5.40); RDW 12.2 % (11.5-15.5); WBC 11.4 k/uL (3.8-10.6)
[2023-05-29] MEDS: PANTOPRAZOLE 40 MG TABLET PO SCH (11:41)
[2023-05-29] MEDS: BISOPROLOL-HCTZ 10-6.25 MG 1 EACH TAB PO SCH (11:41)
--- NOTE | 2023-05-29 12:31 | US ---
EXAMINATION TYPE: US venous doppler duplex LE RT DATE OF EXAM: 05/29/2023 12:25 PM COMPARISON: Venous ultrasound right lower extremity 11/28/2022 CLINICAL INDICATION: Female, 82 years old with history of leg pain; Cellulitis right lower leg SIDE PERFORMED: right TECHNIQUE: The lower extremity deep venous system is examined utilizing real time linear array sonog vick with graded compression, doppler sonography and color-flow sonography. VESSELS IMAGED: Common Femoral Vein Deep Femoral Vein Greater Saphenous Vein * Femoral Vein Popliteal Vein Small Saphenous Vein * Proximal Calf Veins (* superficial vessels) Right Leg: no evidence of DVT as visualized. Technical limitations due to patient's body habitus and limited mobility IMPRESSION: Limited examination due to patient's body habitus and limited mobility. No visualized ul trasound evidence for deep venous thrombosis of the right lower extremity.
--- NOTE | 2023-05-29 13:22 | P.PN ---
Subjective This is a pleasant 82 years old female with multiple medical problems as below Was admitted for right leg cellulitis Continue with cefazolin ID Team on the case 05/29/2023 Patient right leg cellulitis improving slowly and gradually Ultrasound is negative for DVT Wound culture is growing gram-negative bacilli and final result pending Antibiotic was adjusted into cefepime Objective - Vital Signs Vital signs: Vital Signs Temp 98.1 F 05/29/23 07:56 Pulse 66 05/29/23 07:56 Resp 19 05/29/23 07:56 BP 147/75 05/29/23 07:56 Pulse Ox 91 L 05/29/23 07:56 FiO2 Intake & Output 05/28/23 05/29/23 05/29/23 18:59 06:59 18:59 Intake Total 120 Balance 120 Intake: Oral 120 Other: # Voids 2 3 1 - Exam GENERAL: The patient is alert and oriented x3, not in any acute distress. Well developed, well nourished. HEENT: Pupils are round and equally reacting to light. EOMI. No scleral icterus. No conjunctival pallor. Normocephalic, atraumatic. No pharyngeal erythema. No thyromegaly. CARDIOVASCULAR: S1 and S2 present. No murmurs, rubs, or gallops. PULMONARY: Chest is clear to auscultation, no wheezing , no crackles. ABDOMEN: Soft, nontender, nondistended, normoactive bowel sounds. No palpable organomegaly. MUSCULOSKELETAL: No joint swelling or deformity. -EXTREMITIES: No cyanosis, clubbing, or pedal edema. Right leg cellulitis with redness swelling tenderness and erythema NEUROLOGICAL: Gross neurological examination did not reveal any focal deficits. SKIN: No rashes. no petechiae. - Labs CBC & Chem 7: 05/29/23 09:11 05/28/23 08:53 Labs: Abnormal Lab Results - Last 24 Hours (Table) 05/28/23 05/28/23 05/29/23 Range/Units 08:53 08:53 09:11 WBC 12.03 H 11.4 H (4.50-10.00) X 10*3/uL MCV 101.2 H 102.1 H (80.0-97.0) FL MCH 32.5 H (27.0-32.0) pg MPV 9.4 L (9.5-12.2) FL Monocytes # 1.01 H (0.20-1.00) X 10*3/uL Eosinophils # 0.37 H (0.04-0.35) X 10*3/uL BUN/Creatinine Ratio 21.17 H (12.00-20.00) Ratio Glucose 215 H (70-110) mg/dL Microbiology - Last 24 Hours (Table) 05/26/23 17:52 Anaerobic Culture - Preliminary Leg - Right 05/26/23 11:25 Blood Culture - Preliminary Blood 05/26/23 11:10 Blood Culture - Preliminary Blood 05/26/23 17:52 Gram Stain - Preliminary Leg - Right Wound Culture - Preliminary Gram Neg Bacilli Assessment and Plan Assessment: Acute right leg cellulitis History of lymphedema Chronic obstructive pulmonary disease Hypertension Hyperlipidemia Plan: continue with cefepime Follow-up culture results Continue with ID team consult Labs and medication were reviewed.. Continue same treatment. Continue with symptomatic treatment. Resume home medication. Monitor labs and vitals. DVT and GI prophylaxis. Further recommendations as per clinical course of the patie nt DVT prophylaxis: Subcutaneous heparin GI Prophylaxis: Pepcid PT/OT: Pending Prognosis is guarded
[2023-05-29] MEDS: CEFEPIME 2 GM in SODIUM CHLORIDE 0.9% 100 ML IVPB SCH (15:41)
--- NOTE | 2023-05-29 16:09 | P.PN ---
Subjective Progress Note Date: 05/28/23 Principal diagnosis: Right lower extremity cellulitis Patient is a 82-year-old female with a past medical history difficult for hypertension hyperlipidemia reflux heart failure COPD presenting the hospital with increasing swelling to bilateral lower extremity especially the right leg with associated redness and pain and did have a drainage, patient has been diagnosed with venous stasis dermatitis and a component of right lower extremity cellulitis on today's evaluation that is 05/28/2023, the patient denies having any fever or any chills, patient is recommended of pain to the right lower extremity swelling redness slightly decreased no further drainage no chest pain or shortness of breath or cough no abdominal pain and no diarrhea Patient white count is mildly elevated at 12,000 today, creatinine 0.6, local cultures pending blood culture so far negative Objective - Vital Signs Vital signs: Vital Signs Temp 98.6 F 05/28/23 08:00 Pulse 74 05/28/23 08:00 Resp 18 05/28/23 08:00 BP 118/64 05/28/23 08:00 Pulse Ox 92 L 05/28/23 08:00 FiO2 Intake & Output 05/27/23 05/28/23 05/28/23 18:59 06:59 18:59 Intake Total 50 120 Balance 50 120 Intake: Intake, IV Titration 50 Amount ceFAZolin 2 gm In Sodium 50 Chloride 0.9% 50 ml @ 100 mls/hr IVPB Q8HR [facility] Rx# :[id number] Oral 120 Other: # Voids 5 3 # Bowel Movements 1 - Exam GENERAL DESCRIPTION: An elderly female up in the chair in no distress RESPIRATORY SYSTEM: Unlabored breathing , decreased breath sounds at bases HEART: S1 S2 regular rate and rhythm , ABDOMEN: Soft , no tenderness EXTREMITIES: Right lower extremity swelling and redness slightly decreased - Labs CBC & Chem 7: 05/29/23 09:11 05/28/23 08:53 Labs: Microbiology - Last 24 Hours (Table) 05/26/23 11:25 Blood Culture - Preliminary Blood 05/26/23 11:10 Blood Culture - Preliminary Blood Assessment and Plan (1) Cellulitis of right lower leg Current Visit: Yes Status: Acute Code(s): L03.115 - CELLULITIS OF RIGHT LOWER LIMB SNOMED Code(s): 974394477 Plan: 1patient presented hospital with increasing pain swelling redness and clear drainage from the right lower extremity in this patient with a complaint of right lower extremity venous stasis dermatitis and a component of possible cellulitis likely from gram-positive skin zain. 2patient to continue with cefazolin Mycolog cream to the right lower extremity. Patient has been advised mild compression dressing to keep the swelling down Dictation was produced using [employer] dictation software. please excuse any grammatical, word or spelling errors. Time with Patient: Less than 30
--- NOTE | 2023-05-29 16:11 | P.PN ---
Subjective Progress Note Date: 05/29/23 Principal diagnosis: Right lower extremity cellulitis Patient is a 82-year-old female with a past medical history difficult for hypertension hyperlipidemia reflux heart failure COPD presenting the hospital with increasing swelling to bilateral lower extremity especially the right leg with associated redness and pain and did have a drainage, patient has been diagnosed with venous stasis dermatitis and a component of right lower extremity cellulitis on today's evaluation that is 05/29/2023, the patient remains to be afebrile, the patient pain to the right lower extremity swelling redness has slightly decreased in intensity and no further drainage no chest pain or shortness of breath or cough no abdominal pain and no diarrhea Patient white count is down to 11.4, creatinine 0.6, local cultures currently growing gram-negative bacilli blood culture so far negative Objective - Vital Signs Vital signs: Vital Signs Temp 98.1 F 05/29/23 07:56 Pulse 66 05/29/23 07:56 Resp 19 05/29/23 07:56 BP 147/75 05/29/23 07:56 Pulse Ox 91 L 05/29/23 07:56 FiO2 Intake & Output 05/28/23 05/29/23 05/29/23 18:59 06:59 18:59 Intake Total 120 Balance 120 Intake: Oral 120 Other: # Voids 2 3 1 - Exam GENERAL DESCRIPTION: An elderly female up in the chair in no distress RESPIRATORY SYSTEM: Unlabored breathing , decreased breath sounds at bases HEART: S1 S2 regular rate and rhythm , ABDOMEN: Soft , no tenderness EXTREMITIES: Right lower extremity swelling and redness slightly decreased - Labs CBC & Chem 7: 05/29/23 09:11 05/28/23 08:53 Labs: Abnormal Lab Results - Last 24 Hours (Table) 05/29/23 Range/Units 09:11 WBC 11.4 H (3.8-10.6) k/uL MCV 102.1 H (80.0-100.0) fL Microbiology - Last 24 Hours (Table) 05/26/23 17:52 Anaerobic Culture - Preliminary Leg - Right 05/26/23 11:25 Blood Culture - Preliminary Blood 05/26/23 11:10 Blood Culture - Preliminary Blood 05/26/23 17:52 Gram Stain - Preliminary Leg - Right Wound Culture - Preliminary Gram Neg Bacilli Assessment and Plan (1) Cellulitis of right lower leg Current Visit: Yes Status: Acute Code(s): L03.115 - CELLULITIS OF RIGHT LOWER LIMB SNOMED Code(s): 184509001 Plan: 1patient presented hospital with increasing pain swelling redness and clear drainage from the right lower extremity in this patient with a complaint of right lower extremity venous stasis dermatitis and a component of possible cellulitis likely from gram-positive skin zain. 2patient to continue with Mycolog cream to the right lower extremity. Along with mild compression dressing to keep the swelling down 3-we will discuss to cefazolin and start patient on cefepime while awaiting for the cultures to finalize to determine her discharge antibiotics Dictation was produced using [employer] dictation software. please excuse any grammatical, word or spelling errors. Time with Patient: Less than 30
[2023-05-29] MEDS: CHOLECALCIFEROL 25 MCG (1000 IU) TABLET PO SCH (21:12)
[2023-05-29] MEDS: diphenhydrAMINE 25 MG CAP PO SCH (21:12)
[2023-05-29] MEDS: ACETAMINOPHEN TAB 500 MG TAB PO SCH (21:12)
[2023-05-29] MEDS: MULTIVITAMINS, THERA 1 EACH TAB PO SCH (21:12)
[2023-05-29] MEDS: DOCUSATE 100 MG CAP PO SCH (21:12)
[2023-05-30] MEDS: CEFEPIME 2 GM in SODIUM CHLORIDE 0.9% 100 ML IVPB SCH ×3 (00:02→15:42)
[2023-05-30 07:18] VITALS: RESP 17
[2023-05-30] MEDS: HEPARIN SODIUM,PORCINE 5,000 UNIT/ML 1 ML VIAL SQ SCH (10:09)
[2023-05-30] MEDS: ATORVASTATIN 20 MG TAB PO SCH (10:09)
[2023-05-30] MEDS: BISOPROLOL-HCTZ 10-6.25 MG 1 EACH TAB PO SCH (12:23)
[2023-05-30] MEDS: PANTOPRAZOLE 40 MG TABLET PO SCH (12:23)
[2023-05-30] MEDS: TRIAMCINOLONE 0.1% CREAM 80 GM TUBE TOPICAL SCH (12:24)
[2023-05-30] MEDS: NYSTATIN 100,000UNIT/GM CREAM 30 GM TUBE TOPICAL SCH (12:25)
[2023-05-30 13:33] VITALS: BP 163/57; PULSE 74; TEMP 98
--- NOTE | 2023-05-30 21:54 | P.DS ---
Providers Date of admission: 05/26/23 16:33 Attending physician: Efrain Romano Consults: 05/27/23 10:18 Consult Physician Routine Consulting Provider: Jared Chapman Consult Reason/Comments: cellulitis Do you want consulting provider notified?: Yes Primary care physician: Andrew Peña [facility] Hospital Course: Diagnoses: Acute right leg cellulitis History of lymphedema Chronic obstructive pulmonary disease Hypertension Hospital course: This is a pleasant 82 years old female with multiple medical problems including hypertension, chronic obstructive pulmonary disease and lymphedema. Was admitted for right leg cellulitis. Patient evaluated by ID team. She was treated with antibiotics cefazolin. Ultrasound was negative for DVT Wound culture came back positive for Enterobacter cloacae and Staphylococcus intermedius. Patient will be discharged on Keflex 10 days as well as Cipro per ID team. PT/OT recommended home health care which was ordered Patient denies any other symptoms and she is eager to go home today. Patient was cleared for discharge by ID team Problems and management plan were discussed with the patient and he verbalized understanding and acceptance Patient was found stable and can be discharged home in guarded prognosis however he needs follow-up as an outpatient. Patient was instructed to follow up with PCP Dr. Peña within one week and patient agrees Patient also instructed to follow up with Dr. Chapman in 1 week after discharge and she agrees Physical exam Gen: patient is a AAOx3, no distress CVS: S1-S2, RRR, no murmur Lungs: B/L CTA, no wheezing Abdomen: soft, no distention, no tenderness, positive bowel sounds -Extremity: no leg edema or induration. Improving right leg cellulitis, dressing in a Place Time spent more than 35 minutes Plan - Discharge Summary New Discharge Prescriptions: New Cephalexin [Keflex] 500 mg PO Q8HR 10 Days #30 cap Nystatin 100,000Unit/gm Cream [Mycostatin Cream] 1 applic TOPICAL BID #1 tub Ciprofloxacin HCl [Cipro] 500 mg PO Q12HR 10 Days #20 tab Continue Bisoprolol-Hctz 10-6.25 mg [Ziac 10-6.25 MG] 1 tab PO DAILY@1200 Multivit-Min/Iron/Folic/Lutein [Centrum Silver Women Tablet] 1 tab PO HS Omeprazole [PriLOSEC] 20 mg PO DAILY@1200 Docusate [Colace] 100 mg PO HS Cholecalciferol [Vitamin D3 (25 Mcg = 1000 Iu)] 25 mcg PO HS Acetaminophen/Diphenhydramine [Tylenol Pm Exstr 500-25Mg Cplt] 1 tab PO HS Petrolatum, White [Aquaphor] 1 applic TOPICAL BID Rosuvastatin [Crestor] 10 mg PO DIRECTED Discharge Medication List Bisoprolol-Hctz 10-6.25 mg [Ziac 10-6.25 MG] 1 tab PO DAILY@1200 11/26/15 [History] Multivit-Min/Iron/Folic/Lutein [Centrum Silver Women Tablet] 1 tab PO HS 10/30/16 [History] Acetaminophen/Diphenhydramine [Tylenol Pm Exstr 500-25Mg Cplt] 1 tab PO HS 05/26/23 [History] Cholecalciferol [Vitamin D3 (25 Mcg = 1000 Iu)] 25 mcg PO HS 05/26/23 [History] Docusate [Colace] 100 mg PO HS 05/26/23 [History] Omeprazole [PriLOSEC] 20 mg PO DAILY@1200 05/26/23 [History] Petrolatum, White [Aquaphor] 1 applic TOPICAL BID 05/26/23 [History] Rosuvastatin [Crestor] 10 mg PO DIRECTED 05/26/23 [History] Cephalexin [Keflex] 500 mg PO Q8HR 10 Days #30 cap 05/30/23 [Rx] Ciprofloxacin HCl [Cipro] 500 mg PO Q12HR 10 Days #20 tab 05/30/23 [Rx] Nystatin 100,000Unit/gm Cream [Mycostatin Cream] 1 applic TOPICAL BID #1 tub 05/30/23 [Rx] Follow up Appointment(s)/Referral(s): [facility], [NON-STAFF] - 1-2 Days ([facility] will call you to schedule your in home nursing visits. ) Andrew Peña DO [Primary Care Provider] - 06/13/23 8:30 am Jared Chapman MD [STAFF PHYSICIAN] - 06/04/23 3:15 pm Patient Instructions/Handouts: Cellulitis (GEN) Activity/Diet/Wound Care/Special Instructions: Heart healthy diet activity is restricted till you see your doctor Discharge Disposition: HOME WITH HOME HEALTH SERVICES
== END 2023-05-30 16:18 | disposition home health service (06) | DRG 603 ==
LOC: EC 10:19 → 4SSUR 16:33
PROVIDERS: ADMIT Hospitalist; ATTEND Hospitalist
DX: L03.115 Cellulitis of right lower limb (principal); E78.5 Hyperlipidemia, unspecified; I11.0 Hypertensive heart disease with heart failure; I50.9 Heart failure, unspecified; I87.2 Venous insufficiency (chronic) (peripheral); J44.9 Chronic obstructive pulmonary disease, unspecified; Z82.49 Family history of ischemic heart disease and other diseases of the circulatory system; Z85.828 Personal history of other malignant neoplasm of skin; Z86.73 Personal history of transient ischemic attack (TIA), and cerebral infarction without residual deficits; Z87.01 Personal history of pneumonia (recurrent); B95.8 Unspecified staphylococcus as the cause of diseases classified elsewhere; B96.89 Other specified bacterial agents as the cause of diseases classified elsewhere; Z88.1 Allergy status to other antibiotic agents; Z88.5 Allergy status to narcotic agent
CPT/HCPCS: 36415; 80048; 80053; 82607; 82728; 82746; 83540; 83550; 83605; 84165; 85025; 85045; 85610; 85730; 87040; 87070; 87075; 87077; 87186; 87205; 96374; 96376; 99285